=== PATIENT | male | born 1955 | race Caucasian/White ===

== ENCOUNTER 2018-03-20 13:22 | Emergency (ER) | payer OTHER ==
[~2018-03-20] VITALS: Ht 172.7 cm; Wt 63.7 kg
[~2018-03-20 13:22] MED LIST: CLEOCIN HCL300 MG PO; ECO81 PO; LEVAQUIN750 MG PO; LISINOPRIL/HCTZ1 TA2 PO; NIC21 TD
[2018-03-20 15:40] VITALS: BP 113/65
== END 2018-03-20 15:40 | disposition home or self-care (01) ==
LOC: ED 13:22
DX: Z93.0 Tracheostomy status (principal); R06.00 Dyspnea, unspecified; Z85.819 Personal history of malignant neoplasm of unspecified site of lip, oral cavity, and pharynx
CPT/HCPCS: Q0092

== ENCOUNTER 2018-08-21 08:56 | Inpatient (IN) | payer OTHER ==
[~2018-08-21] VITALS: Ht 177.8 cm; Wt 57.8 kg
[2018-08-21 10:26] LABS: BASOPHIL % 0.2 % (0-2); PLATELET COUNT 276 x10^3mcL (130-400)
[2018-08-21 11:01] LABS: ALKALINE PHOSPHATASE 86 U/L (46-116); AST/SGOT 13 U/L (15-37); BILIRUBIN TOTAL 0.22 mg/dL (0.20-1.00); CALCIUM 7.4 mg/dL (8.5-10.1); CARBON DIOXIDE 24.8 mmol/L (21-32); CHLORIDE SERUM 101 mmol/L (98-107); GFR1 > 60 mL/min; GLUCOSE SERUM 154 mg/dL (74-106); MAGNESIUM 1.9 mg/dL (1.8-2.4); POTASSIUM SERUM 3.6 mmol/L (3.5-5.1); SODIUM SERUM 137 mmol/L (136-145)
[2018-08-21 11:06] LABS: ALBUMIN 2.1 g/dL (3.4-5.0); TOTAL PROTEIN, SERUM 5.4 g/dL (6.4-8.2)
[2018-08-21 11:11] LABS: microscopic required? YES; urine erythrocyte TRACE (NEGATIVE)
[2018-08-21 11:22] LABS: ALT/SGPT < 6.0 U/L (16-63)
[2018-08-21 17:16] VITALS: BP 148/60
[2018-08-21] MEDS ORDERED: ATENOLOL100 MG PEG (17:35)
[2018-08-21] MEDS ORDERED: AMLODIPINE BESYL5 M2 GT (17:37)
[2018-08-21] MEDS ORDERED: CYMBALTA20 M1 PEG (17:38)
[2018-08-21] MEDS ORDERED: ZOFRAN8 MG PEG (17:38)
[2018-08-21] MEDS ORDERED: AMBIEN10 MG PEG (17:39)
[2018-08-21] MEDS ORDERED: NOR10T PEG (17:41)
[2018-08-21 18:18] LABS: PLATELET COUNT 234 x10^3mcL (130-400); RED CELL DISTRIBUTION WIDTH 14.1 % (11.5-14.5)
[2018-08-21 18:20] LABS: BASOPHIL % 0 % (0-2)
[2018-08-21 19:30] VITALS: BP 128/84
[2018-08-22] VITALS (8 sets, daily range): BP systolic 100–128; BP diastolic 60–84
[2018-08-22 05:28] LABS: BASOPHIL % 0.3 % (0-2); PLATELET COUNT 226 x10^3mcL (130-400); RED CELL DISTRIBUTION WIDTH 14.3 % (11.5-14.5)
[2018-08-22 05:35] LABS: CARBON DIOXIDE 31.2 mmol/L (21-32); CHLORIDE SERUM 108 mmol/L (98-107); CREATININE SERUM 0.7 mg/dL (0.7-1.3); GFR1 > 60 mL/min; GLUCOSE SERUM 117 mg/dL (74-106); POTASSIUM SERUM 3.5 mmol/L (3.5-5.1); SODIUM SERUM 143 mmol/L (136-145)
[2018-08-22 11:01] LABS: BASOPHIL % 0 % (0-2); PLATELET COUNT 215 x10^3mcL (130-400); RED CELL DISTRIBUTION WIDTH 14.2 % (11.5-14.5)
[2018-08-23] VITALS (7 sets, daily range): BP systolic 101–144; BP diastolic 58–78
[2018-08-23 05:28] LABS: BASOPHIL % 0.3 % (0-2); CARBON DIOXIDE 29.6 mmol/L (21-32); CHLORIDE SERUM 108 mmol/L (98-107); CREATININE SERUM 0.7 mg/dL (0.7-1.3); GFR1 > 60 mL/min; GLUCOSE SERUM 125 mg/dL (74-106); PLATELET COUNT 206 x10^3mcL (130-400); POTASSIUM SERUM 3.3 mmol/L (3.5-5.1); RED CELL DISTRIBUTION WIDTH 14.6 % (11.5-14.5); SODIUM SERUM 137 mmol/L (136-145)
[2018-08-24] VITALS (8 sets, daily range): BP systolic 97–132; BP diastolic 61–80; Ht 177.8 cm; Wt 57.8 kg
[2018-08-24 05:20] LABS: BASOPHIL % 0.1 % (0-2); PLATELET COUNT 201 x10^3mcL (130-400)
[2018-08-24 05:27] LABS: CALCIUM 7.7 mg/dL (8.5-10.1); CARBON DIOXIDE 30.2 mmol/L (21-32); CHLORIDE SERUM 114 mmol/L (98-107); CREATININE SERUM 0.7 mg/dL (0.7-1.3); GFR1 > 60 mL/min; GLUCOSE SERUM 118 mg/dL (74-106); POTASSIUM SERUM 3.8 mmol/L (3.5-5.1); SODIUM SERUM 144 mmol/L (136-145)
[2018-08-24 05:39] LABS: RED CELL DISTRIBUTION WIDTH 14.8 % (11.5-14.5)
[2018-08-24 06:32] LABS: rbc morphology (normal/abnorm) ABNORMAL (NORMAL)
[2018-08-25] VITALS (11 sets, daily range): BP systolic 113–149; BP diastolic 60–95
[2018-08-25 05:51] LABS: BASOPHIL % 0.1 % (0-2); PLATELET COUNT 243 x10^3mcL (130-400)
[2018-08-25 05:54] LABS: RED CELL DISTRIBUTION WIDTH 16.3 % (11.5-14.5)
[2018-08-25 06:12] LABS: CALCIUM 8.2 mg/dL (8.5-10.1); CARBON DIOXIDE 27.3 mmol/L (21-32); CHLORIDE SERUM 111 mmol/L (98-107); CREATININE SERUM 0.8 mg/dL (0.7-1.3); GFR1 > 60 mL/min; GLUCOSE SERUM 112 mg/dL (74-106); POTASSIUM SERUM 3.6 mmol/L (3.5-5.1); SODIUM SERUM 148 mmol/L (136-145)
[2018-08-26 05:32] VITALS: BP 135/79
[2018-08-26 09:59] VITALS: BP 143/72
[2018-08-26 12:10] VITALS: BP 96/67
[2018-08-26 12:15] VITALS: BP 96/67
[2018-08-26 17:05] VITALS: BP 129/75
[2018-08-26 20:32] VITALS: BP 129/75
== END 2018-08-26 20:38 | disposition home or self-care (01) | DRG 720 ==
LOC: ED 08:56 → DU 14:10 → IC 14:10 → DU 08-23 15:22 → IC 08-23 20:40 → DU 08-25 17:41
PROVIDERS: Emergency Medicine; Internal Medicine; Internal Medicine Pulmonary Disease; ADMIT Internal Medicine Pulmonary Disease
PROC: 0W9B30Z Drainage of Left Pleural Cavity with Drainage Device, Percutaneous Approach (ICD-10-PCS; principal; 2018-08-21)
PROC: 30233N1 Transfusion of Nonautologous Red Blood Cells into Peripheral Vein, Percutaneous Approach (ICD-10-PCS; 2018-08-22)
PROC: 3E02340 Introduction of Influenza Vaccine into Muscle, Percutaneous Approach (ICD-10-PCS; 2018-08-22)
PROC: 3E0234Z Introduction of Serum, Toxoid and Vaccine into Muscle, Percutaneous Approach (ICD-10-PCS; 2018-08-22)
PROC: 0D20XYZ Change Other Device in Upper Intestinal Tract, External Approach (ICD-10-PCS; 2018-08-26)
PROC: 0DB68ZX Excision of Stomach, Via Natural or Artificial Opening Endoscopic, Diagnostic (ICD-10-PCS; 2018-08-26 10:30)
DX: A41.9 Sepsis, unspecified organism (principal); J96.10 Chronic respiratory failure, unspecified whether with hypoxia or hypercapnia; E46 Unspecified protein-calorie malnutrition; E87.2 Acidosis; Z93.0 Tracheostomy status; K25.4 Chronic or unspecified gastric ulcer with hemorrhage; J18.9 Pneumonia, unspecified organism; C02.9 Malignant neoplasm of tongue, unspecified; D62 Acute posthemorrhagic anemia; R65.20 Severe sepsis without septic shock; R62.7 Adult failure to thrive; J44.9 Chronic obstructive pulmonary disease, unspecified; J93.9 Pneumothorax, unspecified; E86.0 Dehydration; Z93.1 Gastrostomy status; K59.00 Constipation, unspecified; Z87.891 Personal history of nicotine dependence; Z90.09 Acquired absence of other part of head and neck; Z68.1 Body mass index [BMI] 19.9 or less, adult; Z23 Encounter for immunization
CPT/HCPCS: 32551; 36600; 43235; 43760; 87804; 90658; 90732; A4628; C1729; C9113; J0696; J1170; J1200; J1610; J1940; J2001; J2060; J2250; J2270; J2310; J2405; J3010; J3490; J7030; J7050; J7620; P9016; Q0092

== ENCOUNTER 2018-11-26 14:49 | Emergency (ER) | payer OTHER ==
[~2018-11-26] VITALS: Ht 175.3 cm; Wt 61.2 kg
[~2018-11-26 14:49] MED LIST changes: +AMBIEN10 MG PEG; +AMLODIPINE BESYL5 M2 GT; +ATENOLOL100 MG PEG; +CYMBALTA20 M1 PEG; +NOR10T PEG; +ZOFRAN8 MG PEG
[2018-11-26 15:15] VITALS: BP 106/70; Ht 175.3 cm; Wt 61.2 kg
== END 2018-11-26 17:23 | disposition home or self-care (01) ==
LOC: ED 14:49
DX: Z46.59 Encounter for fitting and adjustment of other gastrointestinal appliance and device (principal); Z85.810 Personal history of malignant neoplasm of tongue; I10 Essential (primary) hypertension
CPT/HCPCS: Q0092; Q9967

== ENCOUNTER 2019-03-07 17:32 | Inpatient (IN) | payer OTHER ==
[~2019-03-07] VITALS: Ht 177.8 cm; Wt 60.0 kg
--- NOTE | 2019-03-07 17:51 | NUR ---
PT BIBA FROM HOME. PER MEDIC PT'S SISTER PT PT HAD FALL TODAY, -LOC. PER MEDIC PT WAS FOUND BETWEEN WALL AND COUCH UPON ARRIVAL. PE MEDIC PT HAD TONGUE REMOVED D/T "MOUTH CANCER." PT ABLE TO ANSWER YES AND NO QUESTIONS WITH HANG GESTURES. GTUBE SEEN TO LUQ WITH BLACK SUBSTANCE IN TUBING. TRACH NOTED, RT AT BEDSIDE FOR SUCTIONING AT THIS TIME; THICK WHITE PHLEGM NOTED. PT CONNECTED TO FULL CM.
[2019-03-07 17:53] LABS: PLATELET COUNT 247 x10^3mcL (130-400)
[2019-03-07 17:55] LABS: RED CELL DISTRIBUTION WIDTH 17.2 % (11.5-14.5)
--- NOTE | 2019-03-07 17:58 | NUR ---
XRAY AT BEDSIDE AT THIS TIME.
--- NOTE | 2019-03-07 17:58 | NUR ---
BLOOD CULTURES COLLECTED AT 1750 USING PROPER TILLER WORKER. PT TOLERATED WELL
[2019-03-07 18:11] LABS: ALKALINE PHOSPHATASE 84 U/L (46-116); ALT/SGPT 15 U/L (16-63); AST/SGOT 22 U/L (15-37); CARBON DIOXIDE 32.7 mmol/L (21-32); CHLORIDE SERUM 93 mmol/L (98-107); GFR1 > 60 mL/min; GLUCOSE SERUM 164 mg/dL (74-106); POTASSIUM SERUM 3.3 mmol/L (3.5-5.1); SODIUM SERUM 137 mmol/L (136-145); TOTAL PROTEIN, SERUM 6.9 g/dL (6.4-8.2)
[2019-03-07 18:14] LABS: ALBUMIN 2.8 g/dL (3.4-5.0)
[2019-03-07 18:16] LABS: MONOCYTE 6 % (0-7); SEGMENTED NEUTROPHILS 83 % (37-75)
[2019-03-07 18:18] LABS: PLATELET MORPHOLOGY PLATELETS NORMAL; rbc morphology (normal/abnorm) ABNORMAL (NORMAL)
--- NOTE | 2019-03-07 18:34 | NUR ---
PROVIDED PT WITH WARM BLANKET AND IS IN HIS POSITION OF COMFORT AT THIS TIME
--- NOTE | 2019-03-07 18:44 | NUR ---
PROVIDED PT WITH URINAL TO PROVIDE SAMPLE
--- NOTE | 2019-03-07 18:57 | NUR ---
PROVIDED PT WITH PILLOW, CALLED RT FOR PT TO BE SUCTIONED
[2019-03-07 19:03] LABS: microscopic required? YES; urine erythrocyte TRACE (NEGATIVE)
--- NOTE | 2019-03-07 19:08 | NUR ---
PT PLACED SELF ON BEDPAN. PT MOTHER AT PT BEDSIDE.
--- NOTE | 2019-03-07 19:26 | NUR ---
PT POSITIONED TO COMFORT, PLACED BACK ON LINEN ROOM CUSTODIAN. MOTHER AT BEDSIDE.
--- NOTE | 2019-03-07 19:35 | NUR ---
PT NOTED WITH SCARRED ABRASIONS TO LEFT ARM AND LINEAR ECCHYMOSIS TO LEFT UPPER SIDE/JUST BELOW ARM PIT. PER PT MOTHER, PT'S FRIENDS DOGS "GET VERY HAPPY TO SEE HIM AND JUMP ON HIM ALL THE TIME AND HE GETS SCRATCHES FROM THE DOGS". PT SMILING AND NODDING HIS HEAD HIS MOTHER EXPLAINED WHERE THE ABRASIONS AND ECCHYMOSIS HAVE COME FROM.
--- NOTE | 2019-03-07 20:23 | NUR ---
REPORT GIVEN TO JASMIN TIDWELL TO ASSUME CARE OF PT.
--- NOTE | 2019-03-07 20:35 | NUR ---
PT TRANSFERRED TO TELE BED 222B ON GURNEY ON PRODUCTION GRIP WITH MYSELF, JASMIN HARRINGTON AND JASMIN RESTREPO AT PT SIDE. PT A&OX4,NO ACUTE DISTRESS NOTED, RESP EVEN ANDU NLABORED, AMBULATED TO TELE BED WITH STEADY GAIT. PT POSITIONED SELF TO POSITION OF COMFORT, REFUSED GOWN. JASMIN TIDWELL AT PT BEDSIDE TO ASSUME CARE OF PT.
--- NOTE | 2019-03-07 20:40 | NUR ---
PATIENT RECEIVED BY ASSIGNED NURSE YAW-JASMIN. PATIENT IS ALERT AND ORIENTED X3, NON VERBAL D/T SURGICAL RESECTION OF TONGUE D/T TONGUE CARCINOMA AND ALSO MOUTH AND NECK RECONSTRUCTIVE SURGERY, COMMUNICATE VIA HAND HELD WHITE BOARD AND ALSO GESTURING. INFORMATION GATHERED FROM MOTHER(NAWAF AVELAR) AND SISTER ( ISAC SLOAN). PER FAMILY PATIENT REASON FOR ADMISSION AND SEEKING MEDICAL INTERVENTION D/T GENERALIZED WEAKNESS, S/P FALL X2 COMING OUT OF THE BATHROOM TODAY AND ALSO WAS FOUND BETWEEN WALL AND COUCH UPON MEDIC ARRIVAL AT HOME. PATIENT WITH TRACHEOSTOMY, SHILEY#6, NECK STRAP SECURED, NOTED SMALL AMT OF YELLOW DISCHARGE FROM SITE. GASTROSTOMY TUBE TO LLQ , NOTED COLOR BLACK ON TUBING, PER FAMILY PATIENT NORMALLY DOES BOLUS FEEDING HIMSELF WITH NUTREN 10 CANS PER DAY Q4HRS, SITE CARE RENDERED. HEPLOCK TO LAC AND RAC INTACT SITE CLEAR. TELE#19 ST W/ OCC PVC'S, IQ=[phone]. NOTED SUPERFICIAL ABRASION TO LEFT LAT CHEST JUST BELOW ARMPIT, ECCHYMOSIS TO LEFT UPPER ARM ABOVE ELBOW-ELSI. NO DISTRESS NOTED. CALL LIGHT PLACED IN REACH.SAFETY AND FALL PREC. INITIATED.WILL ENDORSE CARE TO ASSIGNED NURSE.
--- NOTE | 2019-03-07 20:40 | NUR ---
RECEIVED PT FROM ED, VIA [facility], ABLE TO AMBULATE TO BED, GAIT STRONG AND STEADY, NO ACUTE DISTRESS OBSERVED. ORIENTED PT TO ROOM AND CALL LIGHT.
[2019-03-07 21:31] VITALS: BP 101/69
--- NOTE | 2019-03-07 21:55 | NUR ---
KCL GIEN VIA PEG ORDERED, FLUSHED AND INFUSED WELL. DARK RED DRAINAGE NOTED TO PEG TUBING, ACCORDING TO PT, THIS STARTED 2 DAYS AGO.
--- NOTE | 2019-03-07 22:04 | NUR ---
PER CLINICAL APPLICATION MANAGER, PT'S HR 140'S. PT IN BATHROOM AT THIS TIME, HAVING BM.
[2019-03-07 23:00] VITALS: BP 101/69
--- NOTE | 2019-03-07 23:07 | NUR ---
PT AMBULATED TO BATHROOM, BACK TO BED WITHOUT INCIDENT. DARK TARRY, DARK RED STOOL NOTED, ACCORDING TO PT, STARTED 1 DAY AGO. C/O ABD PAIN, MEDICATED WITH PRN TYLENOL PER EMAR
--- NOTE | 2019-03-08 02:55 | NUR ---
PER CHIEF UNIT FORESTER, PT'S HR UP TO 135-140S. PT IN BATHROOM AT THIS TIME
--- NOTE | 2019-03-08 05:11 | NUR ---
NO SIGNIFICANT CHANGES TO REPORT, PT COMPLIED WITH NURSING CARE THROUGHOUT THE SHIFT WITH NO ACUTE EVENTS OVERNIGHT. NO ACUTE DISTRESS OBSERVED AT THIS TIME, PT LAYING IN BED, BREATHING EVEN AND UNLABORED. COMFORT AND SAFETY MEASURES MAINTAINED. ALL NEEDS ASSESSED AND ATTENDED TO. CALL LIGHT WITHIN REACH. WILL CONTINUE TO MONITOR AND ENDORSE CARE TO DAY SHIFT NURSE
[2019-03-08 05:45] VITALS: BP 108/76
[2019-03-08 06:38] LABS: CALCIUM 8.3 mg/dL (8.5-10.1); CARBON DIOXIDE 31.9 mmol/L (21-32); CHLORIDE SERUM 104 mmol/L (98-107); CREATININE SERUM 0.8 mg/dL (0.7-1.3); GFR1 > 60 mL/min; GLUCOSE SERUM 133 mg/dL (74-106); MAGNESIUM 1.9 mg/dL (1.8-2.4); PHOSPHOROUS 2.3 mg/dL (2.5-4.9); SODIUM SERUM 146 mmol/L (136-145)
[2019-03-08 06:42] LABS: POTASSIUM SERUM 2.8 mmol/L (3.5-5.1)
--- NOTE | 2019-03-08 06:44 | NUR ---
RECEIVED CRITICAL VALUE FOR K 2.8 DR. CLARK PAGED, WILL ANTICIPATE CALL BACK
--- NOTE | 2019-03-08 07:17 | NUR ---
SPOKE WITH DR. MILLER, UPDATED ON PT'S STATUS. ORDERS FOR EGD TODAY AND NPO
--- NOTE | 2019-03-08 08:00 | NUR ---
ALERT AND ORIENTED. CONGESTED BREATHING. DOES HIS OWN FREQUENT SUCTIONING. GT FEEDINGS ON HOLD FOR GI CONSULT. DARK FLUID NOTED IN GT. INTERMITTENT ABD PAIN. INDEPENDENT W ADL'S. BRP. CALL LIGHT WITHIN REACH.
[2019-03-08 08:15] VITALS: BP 109/75; BP 126/84
[2019-03-08 09:24] LABS: PLATELET COUNT 208 x10^3mcL (130-400)
[2019-03-08 09:29] LABS: BASOPHIL % 0 % (0-2); RED CELL DISTRIBUTION WIDTH 16.8 % (11.5-14.5)
--- NOTE | 2019-03-08 10:08 | NUR ---
CHANGED LINENS AND PANTS. PT HAS SIGNED CONSENT FOR EGD FOR TODAY.
--- NOTE | 2019-03-08 11:17 | NUR ---
LEFT VIA BED FOR EGD POSS PEG TUBE REPLCEMENT. TELE MONITOR INFORMED.
--- NOTE | 2019-03-08 12:14 | NUR ---
BACK FROM EGD. LARGE GASTRIC ULCER AND CLOT. NO TREATMENT YET. CT ANGIO OF ABD ORDERED.
--- NOTE | 2019-03-08 15:58 | NUR ---
PTS MOTHER, BARBER AVELAR, TOOK PTS RING HOME.
--- NOTE | 2019-03-08 16:31 | NUR ---
BACK FROM CT ANGIO ABD WITH CONTRAST VIA GT.
[2019-03-08 16:40] VITALS: BP 100/65
--- NOTE | 2019-03-08 19:30 | NUR ---
RECEIVED PT LAYING IN BED, NO ACUTE DISTRESS OBSERVED. S/P EGD EARLIER TODAY, REMAINS NPO ORDERED. ABD ROUND AND SOFT, DENIES N/V, L SIDED PEG TUBE IN PLACE WITH DARK SCANT SEDIMENT NOTED THROUGH TUBING, MULTIPLE BLACK STOOLS EARLIER TODAY. SHILEY #[address] WITH MILD YELLOW DISCHARGE NOTED. PT BREATHING ON RA, EVEN AND UNLABORED, LUNGS DIM, O2 SAT 98% SUCTION AT BEDSIDE, PT ABLE TO SUCTION SELF PRN. PT IS AWAKE AND ALERT, AROUSABLE TO VERBAL STIMULI, NONVERBAL, ABLE TO COMMUNICATE BY GESTURING OR ANSWERING YES OR NO QUESTIONS. PT ALSO UTILIZES WHITE BOARD FROM HOME TO MAKE NEEDS KNOWN. SINUS TACH TO TELE #19, HR 108, NO CP. PULSES PRESENT AND EQUAL THROUGHOUT, NO EDEMA. MILD GENERALIZED WEAKNESS, AMBULATORY AND ABLE TO REPOSITION SELF IN BED, S/P FALL AT HOME PRIOR TO ADMIT, FALL PRECAUTIONS IN PLACE. FREELY VOIDS URINE WITH BRP, URINAL ALSO AT BEDSIDE AND WITHIN REACH. COMFORT AND SAFETY MEASURES IN PLACE. ALL NEEDS ASSESSED AND ATTENDED TO. CALL LIGHT WITHIN REACH. WILL CONTINUE TO MONITOR
--- NOTE | 2019-03-08 19:37 | NUR ---
RESTING QUIETLY. RECEIVED MORPHINE 4 MG IV FOR BURNING PAIN TO ABD. CT ANGIO ABD COMPLETED TODAY. BRP WITH LITTLE ASSIST. CANT TALK USES DRY ERASE BOARD AND HAND GESTURES FOR COMMUNICTING. VSS. CALL LIGHT WITHIN REACH. EGD TODAY LARGE GASTRIC ULCER AND BLOOD CLOT. NO TRETMENT AT THAT TIME. DR. MILLER WANTED TO SEE RESULTS OF CT ANGIO BEFORE MAKING ANY FURTHER DECISIONS.
--- NOTE | 2019-03-08 20:32 | NUR ---
SPOKE WITH DR. MILLER AND GAVE RESULTS OF CT ABD WITH PO CONTRAST. NEW ORDERS TO START 100 ML BOLUS FEEDING OF NUTREN Q4H, PROTONIX VIA PEG BID.
[2019-03-08 20:36] VITALS: BP 124/80
--- NOTE | 2019-03-08 21:02 | NUR ---
NUTREN 2.0 RAMSAY FORMULA EQUIVALENT TWO CAN HN.
--- NOTE | 2019-03-08 22:10 | NUR ---
IV TO LAC FOUND LEAKING WHEN FLUSHED WITH NS, REMOVED WITH CATH INTACT. NEW IV STARTED TO RFA, #22 G AND CONNECTED TO PROTONIX DRIP ORDERED, INFUSING WELL. NO ACUTE DISTRESS OBSERVED, CALL LIGHT WITHIN REACH. WILL CONTINUE TO MONITOR
[2019-03-09] VITALS (7 sets, daily range): BP systolic 99–124; BP diastolic 59–79
--- NOTE | 2019-03-09 00:09 | NUR ---
100 ML BOLUS TUBE FEEDING OF TWO LINA HN INFUSED VIA PT'S PEG TUBE, INFUSED WELL AND EASILY, FLUSHED WITH 40 ML WATER. HOB ELEVATED. MADE PT AWARE TO CALL IF FEELING N/V, NODDED YES. CALL LIGHT WITHIN REACH. WILL CONTINUE TO MONITOR
--- NOTE | 2019-03-09 02:33 | NUR ---
PER TELE, PT'S HR 165. PT ASSESSED, BRIGHT RED BLOOD NOTED TO PEG TUBING, BLOOD OOZING FROM PEG INCISION SITE AND TRACH. B/P 121/79 MAP 89; O2 SAT 95% ON RA; 98.3 TEMP; HR 131; RR 24. ACUTE DISTRESS OBSERVED, PT C/O 04/21 ABD PAIN, ABD ROUND AND SOFT, TENDER. DR. MILLER MADE AWARE, ORDERS TO TRANSFER TO ICU; STAT CBC; STAT TYPE & CROSS; 2 UNITS PRBC ON STANDBY; D/C BOLUS TF; SURGERY CONSULT. ORDERS INPUTTED. DR. RAMIREZ PAGED TO MAKE ATTENDING AWARE. WILL ANTICIPATE CALL BACK
--- NOTE | 2019-03-09 02:45 | NUR ---
REPORT GIVEN TO MAGUE CASTELLANOS IN ICU TO ASSUME CARE OF PT. ALL QUESTIONS AND CONCERNS ADDRESSED
--- NOTE | 2019-03-09 02:48 | NUR ---
RECEIVED PT FROM TELE FLOOR. PT TRANSFERRED ONTO BED 6 WITH NO COMPLICATIONS. PT CONNECTED TO FULL TRANSPORTATION SOLUTIONS MANAGER, VITALS READING: HR 134, BP 102/57 MAP 77, RR 20, SPO2 97%, TEMP 97.6. PT IS AWAKE/ALERT. NONVERBAL. PT ABLE TO NODD HEAD IN RESPONSE TO YES AND NO QUESTIONS. PUPILS WITH BRISK REACTION TO LIGHT, 4 MM BILAT. DENIES CALIX. NO FACIAL DROOP NOTED. PT ABLE TO FOLLOW SIMPLE COMMANDS. SHILEY # [address] WITH BLOOD-TINGED SECRETIONS NOTED. ORAL MUCOSA PINK AND MOIST. TRACHEA MIDLINE. NO JVD NOTED. RECEIVED PT ON RA STATTING 89%. PT PLACED ON 2 LPM VIA NC NOW STATTING 97%. LUNGS SOUND DIMINISHED BILAT. SYMMETRICAL CHEST EXPANSION NOTED. S1/S2 HEART SOUNDS AUSCULTATED. CHEST WALL EQUAL AND SYMMETRICAL. DENIES ANY CP. PALPABLE PULSES X4 EXTREMITIES. SKIN IS WARM AND DRY. NO EDEMA NOTED. CAP REFILL < 3 SECS. RW AND RFA IV'S IN PLACE WITH NO S/S OF INFILTRATION NOTED. PROTONIX GTT INFUSING @ 10 ML/HR AND VANCO ABX INFUSING @ 166 ML/HR. GENERALIZED WEAKNESS. NO JOINT SWELLING/DEFORMITY NOTED. PT IS NPO AT THIS TIME. NO N/V NOTED. ABD IS SOFT/FLAT. PT C/O ABD PAIN, WILL MEDICATE PER EMAR. BOWEL SOUNDS ACTIVE X4 QUADRANTS. NO BM NOTED. L SIDED PEG TUBE IN PLACE WITH DARK BLOODY DRAINAGE NOTED TO PEG TUBING. PT VOIDS FREELY VIA URINAL. NO SCROTAL EDEMA NOTED. ABRASION NOTED TO LEFT ARM, LEFT CHEST, AND LEFT ARMPIT. SCATTERED ECCHYMOSIS NOTED TO LUE. PT ASSISTED TO REPOSITION Q2H AND PRN FOR COMFORT. PT IS CALM AND COOPERATIVE. BED IN LOW POSITION. CALL LIGHT IN REACH. WILL CONT TO MONITOR
--- NOTE | 2019-03-09 03:00 | NUR ---
AERONAUTICAL ENGINEERING OFFICER AT BEDSIDE FOR CBC LAB DRAW
--- NOTE | 2019-03-09 03:13 | NUR ---
PT C/O ABD PAIN RATED 10/10. PT MEDICATED WITH MORPHINE PER EMAR
[2019-03-09 03:29] LABS: BASOPHIL % 0 % (0-2); PLATELET COUNT 200 x10^3mcL (130-400); RED CELL DISTRIBUTION WIDTH 16.5 % (11.5-14.5)
--- NOTE | 2019-03-09 04:35 | NUR ---
PT REPORTING NAUSEA AT THIS TIME. ADMINISTERING ZOFRAN PER EMAR.
--- NOTE | 2019-03-09 04:50 | NUR ---
SPOKE TO DR. SARABIA VIA TELEPHONE. UPDATED ON PT'S STATUS. MADE AWARE OF PT'S CURRENT SEVERE ABD PAIN. PER DR. SARABIA, ORDER DILAUDID 1 MG IVP Q3H PRN SEVERE PAIN. MADE AWARE PT IS HAVING DIFFICULTY URINATING. PER DR. SARABIA, OK TO INSERT WAYNE. PT TO BE MADE FULL CODE. ORDERS READ BACK AND IN AGREEMENT. WILL CARRY OUT ORDERS.
--- NOTE | 2019-03-09 04:58 | NUR ---
16 FR WAYNE CATH PLACED AT THIS TIME VIA STERILE TECHNIQUE.
--- NOTE | 2019-03-09 06:15 | NUR ---
PT HAD A MODERATE AMOUNT OF LOOSE BLACK TARRY COLORED STOOL. FULL BED BATH PROVIDED. PERICARE PROVIDED.
--- NOTE | 2019-03-09 06:17 | NUR ---
SPOKE TO DR. SARABIA VIA TELEPHONE. MADE AWARE OF PT'S CURRENT HGB OF 7.7. AWARE PT HAD A MOD SIZE LOOSE BLACK TARRY BM, BLOOD NOTED TO PEG TUBING, AND PT HAVING BLOOD TINGED SECRETIONS FROM THE TRACH. PER DR. SARABIA, INFUSE 2 UNTIS OF PRBC'S. ORDER READ BACK AND IN AGREEMENT. WILL CARRY OUT ORDER.
[2019-03-09 07:03] LABS: CALCIUM 8.1 mg/dL (8.5-10.1); CARBON DIOXIDE 32.7 mmol/L (21-32); CHLORIDE SERUM 114 mmol/L (98-107); GFR1 > 60 mL/min; GLUCOSE SERUM 160 mg/dL (74-106); POTASSIUM SERUM 3.5 mmol/L (3.5-5.1); SODIUM SERUM 153 mmol/L (136-145)
--- NOTE | 2019-03-09 07:08 | NUR ---
DR. CEE AT BEDSIDE ASSESSING THE PT. UPDATED ON PT'S STATUS. ALL QUESTIONS/CONCERNS ADDRESSED AT THIS TIME
--- NOTE | 2019-03-09 07:12 | NUR ---
REPORT GIVEN TO ROSY CASTELLANOS FOR CONTINUITY OF CARE. ALL QUESTIONS/CONCERNS ADDRESSED AT THIS TIME. ENDORSING ALL CARE
--- NOTE | 2019-03-09 07:35 | NUR ---
THE PATIENT AWAKE, BUT NON-VERBAL DUE TO TRACH. PATIENT ORIENTED TO PERSON, PLACE AND TIME; PATIENT COMMUNICATES VIA GESTURING AND WRITING. PATIENT DENIES SHORTNESS OF BREATH, NAUSEA/VOMITING AT THIS TIME. PATIENT STATES THAT PAIN IN ABDOMEN IS TOLERABLE AT THIS TIME. WILL MEDICATE FOR PAIN PRN. TRACH SIZE [address] TELE # 6 READS SINUS TACHYCARDIA. PEG TUBE AT ABDOMEN TO GRAVITY DRAINING SCANT AMOUNT OF DARK RED DRAINAGE IN THE TUBE. WAYNE CATH TO GRAVITY DRAINING YELLOW URINE. IV SITES TO RFA AND RIGHT WRIST; IVF NS AT 100ML/HR AND PROTONIX DRIP AT 10ML/HR. CALL LIGHT WITHIN REACH. SIDE RAILS UP X3. BED IS AT LOWEST POSITION.
--- NOTE | 2019-03-09 08:57 | NUR ---
DR. CORDERO IS AT BEDSIDE SEEING THE PATIENT. UPDATE PROVIDED TO THE DOCTOR.
--- NOTE | 2019-03-09 09:20 | NUR ---
NEW IV SITE INSERTED TO LFA WITH #20G FOR BLOOD TRANSFUSION.
--- NOTE | 2019-03-09 10:39 | NUR ---
HAD MODERATE SIZED BLACK LIQUIDY STOOL. CLEANED AND LINENS CHANGED. NAD.
--- NOTE | 2019-03-09 12:10 | NUR ---
AT 0935; THE FIRST UNIT OF PRBC INITIATED. VS: TEMP 97.9, HR 124, BP 115/70, RR 22, O2 SAT 97%. INSTRUCTED THE PATIENT TO NOTIFY THE NURSE FOR ANY ADVERSE REACTION. AT 0950: RECHECKING VS AFTER 15 MINUTES OF THE BLOOD TRANSFUSION STARTED. TEMP 99.2, HR 129, BP 106/73, RR 22, AND O2 SAT 99. AT 1210: THE FIRST UNIT OF PRBC COMPLETED; VS: TEMP 98.4, HR 110, BP 124/77, RR 17, O2 SAT 100%. PATIENT DENIES ANY ADVERSE REACTION. WILL TRANSFUSE THE 2ND UNIT OF PRBC AFTER ABX GIVEN TO THE PATIENT.
--- NOTE | 2019-03-09 12:51 | NUR ---
DR. CLARK IS AT BEDSIDE EXAMING THE PATIENT; UPDATE PROVIDED TO THE DOCTOR.
--- NOTE | 2019-03-09 14:45 | NUR ---
AT 1430; THE SECOND UNIT OF PRBC INITATED WITH TEMP 99.2, HR 109, BP 112/76 AND O2 SAT 100%. AGAIN, INSTRUCTED THE PATIENT TO NOTIFY THE NURSE FOR ANY ADVERSE REACTION. AT 1445: RECHECKING THE PATIENT AND VS: TEMP 98.6, HR 108, BP 114/66, RR 18, AND O2 SAT 100%. PATIENT DENIES ANY ADVERSE REACTION SO FAR. CONTINUE TO TRANSFUSE THE BLOOD.
--- NOTE | 2019-03-09 15:15 | NUR ---
Initial Nutrition Assessment: (IC06-A) FRANCISCO AVELAR 63M Dx: Renal failure, dehydration PMHx: HTN, tongue removed (03/03) r/t tongue CA, TF/trach PSHx: CA surgery (tongue CA) Labs: Na 153 H, BG 160 H, BUN 45 H, Alb 2.8 L, Phos 2.3 L, ALT 15 L, RBC 2.44 L, Hgb 7.7 L, HCT 23 L Meds: Protonix, Vancomycin, Zofran Diet: NPO PO intake since admission: NPO Ht: 70 in Wt: 134# BMI: 19.3 Bed scale: 60.9kg IBW: 166# %IBW: 81% UBW: 138# Age: 63 Food Allergies: NKFA Skin: Ecchymosis & abrasion LUE & L chest Jalen: 17 Edema: None noted GI: Abd round, BS hypoactive, PEG tube in place to gravity w/ scant amt dark red drainage in tube Last BM: 03/08 Note (03/09): Nursing trigger received for potential risk Dx, TF. Consult received for TF recommendation. Visited pt bedside, communicates via white board r/t tongue removed r/t tongue CA. Pt states appetite is good, but has been NPO since admission. Pt also expresses "a few" lbs wt loss x 1 wk, and is requesting to have some cold water. Spoke w/ MASONRY SUPERVISOR, states pt has been NPO since being downgraded from upstairs. Noted pt Hx TF. Spoke w/ MASONRY SUPERVISOR regarding recommendation of TF order when appropriate to start, confirmed. Problem with: N/V/D/C: None Problems with: Chewing: Yes Swallowing: Yes Current appetite: good Recent wt change: -4# x 2 days %wt change: -2.9% Vitamin/Supplement use: No Special diet at home: Regular Physical activity: N/A Nutrition education given (specify specific nutrition education and handout given): None given at this time. Food-drug interactions? Education given? None given at this time. Estimated Nutritional Needs Based on ideal body weight (75.5 kg) Energy: 7222-0078 kcal/day (30-35 kcal/kg for CA, wt gain, 81% IBW) Protein: 60-76 g/day (0.8-1.0 g/kg for CA, renal failure) Fluid: 5083-5141 mL/day (1 mL/kcal for dehydration) or per MD Nutrition Diagnosis: Altered nutrient-related lab values r/t renal failure, dehydration AEB Na 153, BUN 45, Phos 2.3. Intervention 1. When medically appropriate, recommend start TF order of TwoCal HN to goal rate 40mL/hr (1920kcal, 80g Pro, 672mL H20) 2. FWF 175mL Q3hrs (1400mL) Monitor/Evaluate Goal: PO intake at least 75% of estimated needs Monitor: PO intake, Labs, GI function F/U in 2-3 days as high risk 03/11-03/12
--- NOTE | 2019-03-09 15:16 | NUR ---
Recommendations: 1. When medically appropriate, recommend start TF order of TwoCal HN to goal rate 40mL/hr (1920kcal, 80g Pro, 672mL H20) 2. FWF 175mL Q3hrs (1400mL)
--- NOTE | 2019-03-09 15:52 | NUR ---
C/O 05/21 SHARP ABD PAIN. MEDICATED PRN, SEE MAR.
--- NOTE | 2019-03-09 17:30 | NUR ---
THE 2ND UNIT OF PRBC COMPLETED; VS: TEMP 98.9, HR 100, BP 110/66, RR 20, AND O2 SAT 100%. PATIENT DENIES ANY ADVERSE REACTION.
--- NOTE | 2019-03-09 17:49 | NUR ---
PER FNS RECCOMENDATION, 2CAL HN W/ GOAL 40 CC/HR, 175 CC FWF Q3H ONCE NO LONGER NPO.
--- NOTE | 2019-03-09 18:21 | NUR ---
WAYNE CARE PROVIDED TO THE PATIENT.
--- NOTE | 2019-03-09 19:04 | NUR ---
REPORT GIVEN TO CHANDANA CORCORAN RN. CONCERNS ADDRESSED.
--- NOTE | 2019-03-09 19:05 | NUR ---
RECEIVED REPORT FROM JULIO CASTELLANOS. WILL RESUME CARE.
--- NOTE | 2019-03-09 19:15 | NUR ---
RECEIVED PT AAOX4. PT HAS TRACH, SHILEY 6 INTACT AND SECURED. ON RA, O2SAT 100%. BREATHING E/U. LUNG SOUNDS DIMINISHED BILATERALLY. S1S2 AUSCULTATED WITH NO MUMURMS NOTED. PT STATES NO CHEST PAIN AT THIS TIME. PT ON PROTONIX GTT AT 10CC/HR AND D5 0.45% NS AT 75CC/HR. PULSES PALPABLE. NO EDEMA NOTED. PEG TUBE IN PLACE DRAINING MINIMAL SANGUINOUS FLUID. PT C/O 7/10 ABDOMINAL PAIN, MEDICATED PRN, SEE EMAR. BS HYPOACTIVE X 4. NPO AT THIS TIME. NO N/V NOTED. WAYNE CATHETER IN PLACE DRAINING VIA GRAVITY YELLOW URINE. NO BM AT THIS TIME. BED IN LOW POSITION. CALL LIGHT WITHIN REACH. WILL CONTINUE TO MONITOR.
--- NOTE | 2019-03-09 19:21 | NUR ---
PT C/O 02/18 ABDOMINAL PAIN. GIVEN DILAUDID 1MG IVP. WILL REASSESS FOR RELIEF OF PAIN.
--- NOTE | 2019-03-09 19:23 | NUR ---
MOLECULAR BIOLOGY DIRECTOR AT BEDSIDE FOR BLOOD DRAW.
[2019-03-09 19:48] LABS: PLATELET COUNT 157 x10^3mcL (130-400); RED CELL DISTRIBUTION WIDTH 18.3 % (11.5-14.5)
[2019-03-09 20:07] LABS: BAND NEUTROPHIL 3 % (0-10); BASOPHIL 0 % (0-2); MONOCYTE 6 % (0-7); SEGMENTED NEUTROPHILS 84 % (37-75); rbc morphology (normal/abnorm) ABNORMAL (NORMAL)
[2019-03-09 20:09] LABS: PLATELET MORPHOLOGY PLATELETS NORMAL; tear drop cell (dacryocyte) 1+
[2019-03-10 03:09] VITALS: BP 114/67
--- NOTE | 2019-03-10 04:45 | NUR ---
PT CLEANED AND ALL LINENS CHANGED. WAYNE CATHETER CARE PROVIDED. URINE OUTPUT DURING SHIFT, 950CC OF YELLOW URINE. OUTPUT FROM PEG TUBE, 80CC OF DARK BROWNISH RED OUTPUT. PT MEDICATED FOR ABDOMINAL PAIN WITH DILAUDID 1MG IVP X 2 AND MORPHINE SULFATE 4MG IVP X 2, WITH RELIEF OF PAIN. ALL NEEDS MET AND ANTICIPATED THROUGHOUT SHIFT.
--- NOTE | 2019-03-10 04:55 | NUR ---
SUPERVISOR TRAVEL TRAILER AT BEDSIDE FOR BLOOD DRAW.
[2019-03-10 05:55] LABS: ALKALINE PHOSPHATASE 62 U/L (46-116); ALT/SGPT 12 U/L (16-63); AST/SGOT 7 U/L (15-37); BILIRUBIN DIRECT 0.11 mg/dL (0.0-0.2); BILIRUBIN TOTAL 0.34 mg/dL (0.20-1.00); CALCIUM 8.2 mg/dL (8.5-10.1); CARBON DIOXIDE 29.6 mmol/L (21-32); CHLORIDE SERUM 118 mmol/L (98-107); CREATININE SERUM 0.8 mg/dL (0.7-1.3); GFR1 > 60 mL/min; GLUCOSE SERUM 105 mg/dL (74-106); SODIUM SERUM 155 mmol/L (136-145)
[2019-03-10 05:56] LABS: ALBUMIN 2.4 g/dL (3.4-5.0); TOTAL PROTEIN, SERUM 5.5 g/dL (6.4-8.2)
[2019-03-10 06:10] LABS: BASOPHIL % 0.1 % (0-2); PLATELET COUNT 179 x10^3mcL (130-400)
[2019-03-10 06:12] LABS: RED CELL DISTRIBUTION WIDTH 18.1 % (11.5-14.5)
--- NOTE | 2019-03-10 06:25 | NUR ---
SPOKE WITH DR. AVALOS, WHO IS THE METABOLIC SPECIALIST MD FOR DR. CEE REGARDING LAB VALUES NA 155, K+ 3.0, HGB 7.9. NEW TELEPHONE ORDER, POTASSIUM CHLORIDE 40MEQ PO Q4HRS X 2. ORDER READ BACK AND CARRIED OUT.
--- NOTE | 2019-03-10 07:04 | NUR ---
SPOKE TO EXCHANGE REQUESTING MD CALL BACK REGARDING ROUTE OF POTASSIUM CHLORIDE ORDER.
--- NOTE | 2019-03-10 07:10 | NUR ---
GAVE REPORT TO ASH CASTELLANOS. ALL QUESTIONS AND CONCERNS ADDRESSED.
--- NOTE | 2019-03-10 07:54 | NUR ---
DR PORTILLO PRESENT AT BEDSIDE DISCUSSING POC WITH PT AT THIS TIME
[2019-03-10 08:00] VITALS: BP 108/62
--- NOTE | 2019-03-10 08:00 | NUR ---
PT RESTING IN BED WITH NO APAPRENT SIGNS OF DISTRESS. A/A/O/X4, NONVERBAL. PT DENIES ACLIX/DIZZINESS. NSR ON MONITOR. PT DENIES CP. RESPIRAITONS E/U. LUNGS DIM IN BASES. ON RA, DENIES SOB. NO RESP DISTRESS NOTED. PT CHRISTIANO CHEN 6. PALP PULSES NOTED TO ALL EXTREMITIES. CAP REFIL <3. SKIN WARM TO TOUCH. ABRASION/ECCYMOSIS NOTED TO CHEST/LUE, SOCIAL ORGANIZATION PROFESSOR. ABDOMEN TENDER TO TOUCH. HYPOACTIVE BS. DENIES N/V. PEG IN PLACE, DRAINING TO GRAVITY MIN DARK DRAINAGE NOTED. F/C WITH YELLOW URINE DRAINING TO GRAVITY. NO SCROTAL EDEMA/PENILE DISCHARGE NOTED. GENERALIZED WEAKNESS. PT ABLE TO REPOSITION SELF. WILL ASSIST NEEDED. BED IN LOWEST POSITION. CALL LIGHT IN REACH. WILL CONT TO MONITOR
--- NOTE | 2019-03-10 08:09 | NUR ---
PT C/O OF ABD PAIN AT THIS TIME, MEDICATED PER EMAR
--- NOTE | 2019-03-10 08:32 | NUR ---
DR CORDERO AT BEDSIDE DISCUSSING POC WITH PT AT THIS TIME
[2019-03-10 10:38] VITALS: BP 117/52
[2019-03-10 12:00] VITALS: BP 129/63
--- NOTE | 2019-03-10 13:00 | NUR ---
PT REQUESTING TO SUCTION SELF AT THIS TIME. MIN CLEAR DRAINAGE NOTED. O2 SAT 98% AT THIS TIME. PT DENIES SOB
--- NOTE | 2019-03-10 17:24 | NUR ---
REPORT CALLED AND GIVEN TO ROD CASTELLANOS. ALL QUESTIONS AND CONCERNS ADDRESSED AT THIS TIME. PT TO BE TRANSFERRED TO ROOM 258. WILL CONT TO MONITOR
--- NOTE | 2019-03-10 17:39 | NUR ---
TELEPHONED PATIENT'S MOTHER NAWAF AND INFORMED HER PATIENT TO BE TRANSFERRED TO ROOM 258A. ALL QUESTIONS AND CONCERNS ADDRESSED.
--- NOTE | 2019-03-10 17:51 | NUR ---
PT C/O OF ABDOMINAL PAIN AT THIS TIME, MEDICATED PER EMAR. VITALS STABLE. WILL TRANSFER AT THIS TIME
--- NOTE | 2019-03-10 18:54 | NUR ---
RECEIVED PT FROM ICU, PT IS ALERT BUT NONVERBAL, PT IS ABLE TO COMMUNICATE WITH NURSE WITH WRITTING BOARD, LUNG SOUND CONGESTED OBDULIO, THE HAS TACH, PT IS ROOM AIR, PO2 97%, SUCTION WAS DONE BY PT REQUESTED. PT IS ON TELE 13, NSR, DENY ANY CHEST PAIN OR DISCOMFORT, BOWEL SOUND PRESENT ALL 4 QUARATNS, NO DISTENTION, NO TENDER. PEDAL PULSE PRESENT BOTH FEET, NO EDEMA, IV AT RIGHT FA, AND LEFT FA, NO LEAKING, NO INFILTRAITON. PEG TUBE IS ON GRAVITY DRAINAGE. DARK BROWN DRAINAGE NOTED. WAYNE CATH IN PLACE, ALL ADLS ASSIST, ALL NEED MET, CALL LIGHT IN REACH, WILL CONTINUE TO MONITOR.
[2019-03-10 18:58] VITALS: BP 129/69
--- NOTE | 2019-03-10 20:18 | NUR ---
PATIENT COMPLAINED OF ABDOMINAL PAIN, PS 8/10. MEDICATED WITH DILAUDID 1 MG IVP OREDERED. WILL CONTINUE TO MONITOR.
[2019-03-10 21:44] VITALS: BP 133/75
--- NOTE | 2019-03-10 22:21 | NUR ---
PATIENT COMPLAINED OF ABDOMINAL PAIN/HEADACHE, PS 9/10. MEDICATED WITH MORPHINE SULFATE 4 MG IVP ORDERED. WILL CONTINUE TO MONITOR.
--- NOTE | 2019-03-11 01:37 | NUR ---
PATIENT COMPLAINED OF ABDOMINAL PAIN, PS 8/10. MEDICATED WITH DILAUDID 1 MG IVP ORDERED. WILL CONTINUE TO MONITOR.
--- NOTE | 2019-03-11 04:46 | NUR ---
PATIENT COMPLAINED OF ABDOMINAL PAIN, PS 8/10. MEDICATED WITH DILAUDID 1 MG IVP ORDERED. WILL CONTINUE TO MONITOR.
--- NOTE | 2019-03-11 05:35 | NUR ---
PATIENT REQUESTED TO BE SUCTIONED. SUCTIONED TWO TIMES AND RECEIVED PIPER/BLOODY THICK SECRETIONS. PATIENT HAS A STRONG AND EFFECTIVE COUGH. COMPLETED TRACH CARE OF CLEANING STOMA AREA AND SECRETIONS THAT COME UP WHEN PATIENT COUGHS. TRACH DOES NOT HAVE AN INNER CANNULA OR DRESSING. PATIENT DID NOT WANT TRACH TIES CHANGED.
--- NOTE | 2019-03-11 06:15 | NUR ---
PATIENT AWAKE IN BED, RESPIRATION EVEN AND UNLABORED, TRACHEOSTOMY TO ROOM AIR. SUCTIONED NEEDED. TRACHEOSTOMY CARE DONE BY RESPIRATORY THERAPIST. IV SITE NO SIGN OF INFILTRATION. PEG TUBE IN PLACED TO DRAINAGE BAG TO GRAVITY DRAINING BROWNISH DRAINAGE. WAYNE CATHETER TO GRAVITY DRAINING YELLOW COLORED URINE. PATIENT STILL COMPLAINING OF ON/OFF ABDOMINAL PAIN. MEDICATED ORDERED. WANTS TO EAT. ASSISTED WITH NEEDS. SAFETY OBSERVED. PLACED BED IN THE LOWEST POSITION. PLACED CALL LIGHT WITHIN REACH AT ALL TIMES.
[2019-03-11 06:17] VITALS: BP 105/58
[2019-03-11 06:58] LABS: CALCIUM 8.4 mg/dL (8.5-10.1); CARBON DIOXIDE 27.1 mmol/L (21-32); CHLORIDE SERUM 115 mmol/L (98-107); CREATININE SERUM 0.9 mg/dL (0.7-1.3); GFR1 > 60 mL/min; GLUCOSE SERUM 95 mg/dL (74-106); POTASSIUM SERUM 3.6 mmol/L (3.5-5.1); SODIUM SERUM 153 mmol/L (136-145)
[2019-03-11 07:08] LABS: BASOPHIL % 0.2 % (0-2); PLATELET COUNT 197 x10^3mcL (130-400)
[2019-03-11 07:10] VITALS: BP 126/74
[2019-03-11 07:39] LABS: RED CELL DISTRIBUTION WIDTH 18.1 % (11.5-14.5)
--- NOTE | 2019-03-11 07:47 | NUR ---
RECIEVEDD PATIENT FROM JASMIN MCKINNEY. PATIENT IN BED, WITH MILD COMPLAINTS OF CALIX AND ABDOMINAL PAIN. DR CEE IN TO SPEAK WITH PATIENT ABOUT PLPAN OF CARE ANDD ABOUT NPO STATUS, STATES PATIENT NEEDS TO BE CLEARED BY GI CONSULT FIRST. PATIENT NODS IN AGREEMENT. DR CEE ALSO STATES PERHAPS ONE MORE DAY. WILL ADMINISTER PRN PAIN MEDICATIONS TODAY, CALL LIGHT IN REACH.
--- NOTE | 2019-03-11 10:44 | NUR ---
PATIENT WITH PT MARY FOR EVAL. PATIENT SEEN AMBULATING DOWN LOCKE WITH PT UNASSISTED. NO FURTHER COMPLAINTS AT THIS TIME. CALLED PATIENT FAMILY ABOUT PATIENT BELONGINGS HE IS LOOKING FOR HIS CELL PHONE, WHICH HIS MOTHER STATES THAT HIS SISTER MIGHT HAVE.
[2019-03-11 12:18] VITALS: BP 124/55
--- NOTE | 2019-03-11 15:10 | NUR ---
PATIENT IN BED SLEEPING AT THIS TIME. NO COMPLAINTS OR SIGNS OF DISTRESS. WILL CONTINUE TO MONITOR FOR EXCESS BLEEDING AND WAITING FOR DR GARCIA TO SPEAK WITH PATIENT. CALL LIGHT IN REACH AT THIS TIME.
[2019-03-11 16:19] VITALS: BP 106/54
--- NOTE | 2019-03-11 19:27 | NUR ---
REPORTED OFF TO JASMIN MONTERO. PATIENT IN BED AT THIS TIME. HAS COMPLAINTS OF ABD PAIN AND ACLIX, JASMIN MONTERO AWARE. DR CLARK IN TO SPEAK WITH PATIENT AND VERBALLY STATES TO REMOVED WAYNE CATHETER, BUT NO ORDER PLACED. JASMIN MONTERO AWARE. CALL LIGHT IN REACH, PATIENT NEAR NURSES STATION.
--- NOTE | 2019-03-11 19:31 | NUR ---
RECEIVED PT FROM PREVIOUS SHIFT. PT A/OX4. NONVERBAL, COMMMUNICATED VIA MARKER BOARD AT BEDSIDE AND GESTURES. DENIES PAIN. DENIES SOB ON RA. TRACH IN PLACE. G TUBE DRAINING TO GRAVITY WITH DARK GREENISH-BROWN OUTPUT. CALL LIGHT WITHIN REACH, BED IN LOW POSITION. WILL CONTINUE TO MONITOR.
[2019-03-11 20:20] VITALS: BP 106/56
--- NOTE | 2019-03-11 22:03 | NUR ---
F/C DISCONTINUED PER PATIENT'S REQUEST WITH NO COMPLICATIONS. PROVIDED PT WITH URINAL AT BEDSIDE.
--- NOTE | 2019-03-12 01:16 | NUR ---
PT RESTING IN NO ACUTE DISTRESS. RR EVEN AND UNLABORED. CALL LIGHT WITHIN REACH, BED IN LOW POSITION. WILL CONTINUE TO MONITOR.
[2019-03-12 05:13] VITALS: BP 93/51
[2019-03-12 06:48] LABS: BASOPHIL % 0.3 % (0-2); PLATELET COUNT 207 x10^3mcL (130-400)
[2019-03-12 06:57] LABS: ALKALINE PHOSPHATASE 77 U/L (46-116); ALT/SGPT 26 U/L (16-63); AST/SGOT 20 U/L (15-37); BILIRUBIN DIRECT 0.14 mg/dL (0.0-0.2); BILIRUBIN TOTAL 0.5 mg/dL (0.20-1.00); CARBON DIOXIDE 27.1 mmol/L (21-32); CHLORIDE SERUM 106 mmol/L (98-107); CREATININE SERUM 0.8 mg/dL (0.7-1.3); GFR1 > 60 mL/min; GLUCOSE SERUM 74 mg/dL (74-106); SODIUM SERUM 143 mmol/L (136-145)
[2019-03-12 07:12] LABS: RED CELL DISTRIBUTION WIDTH 17.8 % (11.5-14.5)
[2019-03-12 07:15] LABS: ALBUMIN 2.5 g/dL (3.4-5.0); POTASSIUM SERUM 2.4 mmol/L (3.5-5.1); TOTAL PROTEIN, SERUM 5.5 g/dL (6.4-8.2)
--- NOTE | 2019-03-12 07:42 | NUR ---
REPORT TAKEN FROM RESEARCH INSTRUCTOR NURSE, PT AWAKE AND ALERT AND ABLE TO COMMUNICATE AT TIME OF REPORT. LAB CALLED TO REPORT POTASSIUM OF 2.4. DR CEE PAGED.
[2019-03-12 08:23] VITALS: BP 115/61
[2019-03-12] MEDS ORDERED: PANTOPRAZOLE SO40 M1 PO (10:43)
--- NOTE | 2019-03-12 12:02 | NUR ---
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 Patient said that he is on Nutren 1.5 at home. Patient does bolus feedings at home by himself. Per nurse tech Jane, patient is to be discharged home with bolus feeds. Estimated Nutritional Needs based on ideal body weight 75.5 kg Energy: 5384-3894 kcal/d (30-35 kcal/kg) for CA, wt gain Protein: 60-76 g/d (0.8-1.0 g/kg)- CA vs renal failure Fluid: per MD Nutrition Diagnosis 1. Altered nutrient -related lab values related to renal failure, dehydration as evidenced by NA: 153, BUN: 45 (improved- NA:143, BUN: 14 on 03/12). 2. Inadequate oral intake related to tube feedings not started as evidenced by NPO. Intervention 1. Recommend TwoCal HN @ 150 ml Q4H. FWF 200 ml Q4H. This will provide 1800 kcal and 75g protein. This will meet 95% calorie and 100% protein needs. Monitor/Evaluate Goal: Have pt meet at least 75% of estimated needs Monitor: PO intake, Labs, GI function F/U in 2-3 days as high risk 03/14-
--- NOTE | 2019-03-12 13:04 | NUR ---
C/O ABD. PAIN AND MILD HEADACHE, 04/21. MEDICATED WITH MORPHINE IVP PER ORDER. NURSE BRANDON NOTIFIED.
[2019-03-12 13:24] VITALS: BP 105/55
[2019-03-12 16:22] VITALS: BP 93/53
--- NOTE | 2019-03-12 18:20 | NUR ---
I CALLED THE PT'S SISTER TO REPORT THAT THE PT IS READY TO BE DISCHARGED, I SPOKE TO THE PT'S MOTHER WHO SAID SHE WOULD PASS THE MESSAGE ALONG TO THE PT'S SISTER. I ADVISED SHE CALL THE HOSPITAL OR THE PT TO TELL US WHEN SHE WILL BE HERE.
--- NOTE | 2019-03-12 19:27 | NUR ---
PT DC'D HOME IN THE CARE OF HIS SISTER, IV'S DC'D FROM B/L FOREARMS BLEEDING CONTROLLED, SITES WRAPPED WITH GUAZE AND COBAN, PT SIGNED DC PAPERS. AMBULATORY AT DISCHARGE. WALKED TO EXIT BY MECHANICAL PROCESS ENGINEER VIA WHEELCHAIR.
[2019-03-12 21:40] VITALS: Ht 177.8 cm; Wt 60.0 kg
== END 2019-03-12 19:00 | disposition home health service (06) | DRG 241 ==
LOC: ED 17:32 → IC 19:29 → DU 19:29 → IC 03-09 02:59 → DU 03-09 03:05 → IC 03-09 03:06 → DU 03-10 18:05
PROVIDERS: Emergency Medicine; Internal Medicine; Internal Medicine Nephrology; Internal Medicine Pulmonary Disease; ADMIT Internal Medicine
PROC: 0DJ08ZZ Inspection of Upper Intestinal Tract, Via Natural or Artificial Opening Endoscopic (ICD-10-PCS; principal; 2019-03-08 12:30)
PROC: 30233N1 Transfusion of Nonautologous Red Blood Cells into Peripheral Vein, Percutaneous Approach (ICD-10-PCS; 2019-03-09)
DX: K25.4 Chronic or unspecified gastric ulcer with hemorrhage (principal); E87.2 Acidosis; E87.0 Hyperosmolality and hypernatremia; Z93.0 Tracheostomy status; I10 Essential (primary) hypertension; E86.0 Dehydration; D50.0 Iron deficiency anemia secondary to blood loss (chronic); E87.6 Hypokalemia; K20.8 Other esophagitis; Z93.1 Gastrostomy status; Z85.810 Personal history of malignant neoplasm of tongue
CPT/HCPCS: 36600; 43235; C9113; G0378; J1170; J1200; J1610; J2250; J2270; J2310; J2405; J2543; J3010; J3370; J3480; J3490; J7030; J7050; J7070; P9016; Q0092; Q9966

== ENCOUNTER 2019-03-14 22:42 | Inpatient (IN) | payer OTHER ==
[~2019-03-14] VITALS: Ht 175.3 cm; Wt 68.0 kg
[~2019-03-14 22:42] MED LIST changes: +PANTOPRAZOLE SO40 M1 PO
--- NOTE | 2019-03-14 22:49 | NUR ---
PT TO ANOTHER HOSPITAL WHEN HE HAD A NEAR SYNCOPAL EVENT. PT HAS EXTENSIVE CANCER HX WHERE THEY REMOVED PART OF HIS TONGUE. PT DOES NOT VERBALLY COMMUNICATE ONLY USUALY COMMUNICATED BY DRAWING. PT HAS TRACHEOSTOMY WELL G TUBE. PT IS COUGHING OUT COFFEE GROUND EMESIS OUT OF TRACHEOSTOMY. PT IS BREATHING EQUAL AND MILDLY LABORED/ TACHYPNIC. PT IS RESPONSIVE TO VERBAL STIMULI AND FOLLOWS COMMANDS EASILY. PT WHEN ASKED IF HE HAS PAIN PT IS ABLE TO POINT TO HIS STOMACH AREA WELL GRIMACES UPON PALPATION. PT HAS POSITIVE RECTAL BLEED WELL. PT WAS DISCHARGED YESTERDAY WITH THIS KNOWLEDGE. PER FAMILY HE IS AT HIS BASELINE MENTALLY, THEY JUST REPORTED THE WEAKNESS. PT IS PALE, AND COOL. SKIN IS MOIST AND INTACT.PT HAS VISIBLE BRUISING TO UPPER EXTREMETIES FROM WHERE IT LOOKS TO BE IF BLOOD DRAWS/ IVS HAVE BEEN PLACED PRIOR. PT CONNECTED TO FULL CM,PULSE OX AND BP MONITORS. RT APODACA AND MD MITCHELL AT BEDSIDE FOR SUCTION AND EVALUATION.
--- NOTE | 2019-03-14 23:23 | NUR ---
AWAITING BLOOD CULTURES TO BE DRAWN AT THIS TIME TO START IV ABX ORDERED
--- NOTE | 2019-03-14 23:28 | NUR ---
CALLED TO ER TO ASSIST WITH TRACH CARE AND SUCTIONING. PATIENT HAS A TRACH THAT HAS NO INNER CANNULA. SIZE 6 PORTEX THAT IS SECURE WITH TRACH TIES. NO PROTECTIVE PADDING OR GAUZE USED FOR TRACH. SPO2 ON ROOM AIR 96%.
--- NOTE | 2019-03-14 23:43 | NUR ---
LAB AT BEDSIDE FOR BLOOD DRAW
[2019-03-15 00:06] LABS: PLATELET COUNT 218 x10^3mcL (130-400)
[2019-03-15 00:08] LABS: microscopic required? NO
[2019-03-15 00:10] LABS: BASOPHIL % 0 % (0-2); RED CELL DISTRIBUTION WIDTH 18.7 % (11.5-14.5)
[2019-03-15 00:13] LABS: CALCIUM 6.7 mg/dL (8.5-10.1); CHLORIDE SERUM 110 mmol/L (98-107); CREATININE SERUM 0.8 mg/dL (0.7-1.3); GFR1 > 60 mL/min; GLUCOSE SERUM 131 mg/dL (74-106); POTASSIUM SERUM 4.6 mmol/L (3.5-5.1); SODIUM SERUM 145 mmol/L (136-145)
[2019-03-15 00:18] LABS: ALKALINE PHOSPHATASE 62 U/L (46-116); ALT/SGPT 16 U/L (16-63); AST/SGOT 10 U/L (15-37); BILIRUBIN TOTAL 0.2 mg/dL (0.20-1.00)
[2019-03-15 00:23] LABS: ALBUMIN 1.7 g/dL (3.4-5.0); TOTAL PROTEIN, SERUM 3.9 g/dL (6.4-8.2)
[2019-03-15 00:26] LABS: UA SPECIFIC GRAVITY 1.015 (1.005-1.035); urine erythrocyte NEGATIVE (NEGATIVE)
[2019-03-15 00:45] LABS: CK-MB 0.9 ng/mL (0-3.6)
--- NOTE | 2019-03-15 00:51 | NUR ---
MD MITCHELL MADE AWARE MD MITCHELL MADE AWARE OF PT LOW BP
--- NOTE | 2019-03-15 00:51 | NUR ---
CALLED BLOOD BANK. BLOOD BANK STATES 25 MINUTES FOR BLOOD
--- NOTE | 2019-03-15 01:05 | NUR ---
PT STILL ALERT AND RESPONSIVE TO VERBAL STIMULI AND ABLE TO FOLLOW ALL COMMANDS AT THIS TIME
--- NOTE | 2019-03-15 01:18 | NUR ---
BLOOD STARTED AT THIS TIME. WILL REMAIN WITH PT FOR FURTHER MONITORING
[2019-03-15 01:21] LABS: rbc morphology (normal/abnorm) ABNORMAL (NORMAL)
[2019-03-15 01:22] LABS: ovalocyte/elliptocyte 1+
--- NOTE | 2019-03-15 01:33 | NUR ---
BLOOD INCREASED TO 200ML/HR PER MD MITCHELL REQUEST AND LOW BP WITH GI BLEED
--- NOTE | 2019-03-15 01:37 | NUR ---
PER MD MITCHELL WAIT TO SEE IF BLOOD BOLUS HELPS PT BP AND IF NOT WE WILL PREP FOR A CENTRAL LINE AND PRESSORS PT STILL RESPONSIVE TO VERBAL STIMULI AND COOPERATIVE
--- NOTE | 2019-03-15 01:49 | NUR ---
PROTONIX HELD WHILE ADMINISTERING NOREPINEPHRINE FOR LINE INCOMPATIBILITY
--- NOTE | 2019-03-15 02:18 | NUR ---
PT IS ABLE TO USE URINAL ON HIS OWN AT THIS TIME WHEN ASKED PT IF HE FEELS BETTER PT GIVES ME A THUMBS UP AND NODS HIS HEAD
--- NOTE | 2019-03-15 02:40 | NUR ---
G TUBE FLUSHED WITH COLD WATER PER PT REQUEST. 160ML OF WATER IN
--- NOTE | 2019-03-15 02:42 | NUR ---
HOLDING FLAGYL PER NO LINE TO INFUSE IN. GOING TO PLACE CENTRAL LINE. FALGYL INCOMPATIBLE WITH LIFE SAVING DRUGS INFUSING AT THIS TIME
--- NOTE | 2019-03-15 03:16 | NUR ---
PT TRACH SUCTIONED WITH THICK BLACK/RED SECRETIONS. PT ABLE TO VERBALIZE NEEDS AND COUGH UP THICK SECRETIONS AT THIS TIME
--- NOTE | 2019-03-15 03:19 | NUR ---
MD MITCHELL AT BEDSIDE FOR CENTRAL LINE INSERTION
--- NOTE | 2019-03-15 03:46 | NUR ---
PT CURRENTLY WRITING NOTES ON A PIECE OF PAPER WITH A PEN
--- NOTE | 2019-03-15 03:53 | NUR ---
RECEIVED REPORT FROM KAYLEE IN ED. AWAITING PT TRANSFER TO ICU.
--- NOTE | 2019-03-15 03:54 | NUR ---
REPORT GIVEN TO NILO CASTELLANOS TO RESUME CARE OF PT X RAY AT BEDSIDE TO CONFIRM CENTRAL LINE PLACEMENT
--- NOTE | 2019-03-15 03:59 | NUR ---
MD MITCHELL STATES CENTRAL LINE IS CONFIRMED IN PLACEMENT AND IS OKAY TO USE PROTONIX AND LEVOPHED MOVED TO CENTRAL LINE
--- NOTE | 2019-03-15 04:15 | NUR ---
PT BROUGHT IN VIA GUERNEY FROM ED ACCOMPANIED BY NURSE AND EMT. PT ABLE TO TRANFER HIMSELF WITH SOME ASSISSTANCE TO ICU BED. HOOKED PT UP TO RETAIL LOAN ORIGINATOR AND CONTINUOUS PULSE OX. VS ON ADMISSION: T 97.1, HR 86, BP 107/74 (90), RR 16, O2SAT 100% ON RA. AAOX4. NONVERBAL BUT ABLE TO MAKE NEEDS KNOWN THROUGH WRITING AND GESTURES. ABLE TO FOLLOW COMMANDS. BREATHING E/U. LUNG SOUNDS CLEAR TO UPPER LOBES AND DIMINISHED TO BASES. S1S2 AUSCULTATED WITH NO MURMURS NOTED. PULSES PALPABLE. NO EDEMA NOTED. NS INFUSING AT 80CC/HR. LEVOPHED AT 2MCG/MIN. PROTONIX GTT AT 8ML/HR. RIJ CVC TRIPLE LUMEN INTACT AND PORTS PATENT, WNL. R BACK OF ARM 20G AND L HAND 20G, WNL. SKIN WARM, DRY. PT HAS SCATTERED ECCYMOSIS TO BUE. PT C/O 7/10 ABDOMINAL PAIN, MEDICATED PRN (SEE EMAR). NO N/V NOTED. NPO AT THIS TIME. URINAL AT BEDSIDE. BED IN LOW POSITION. CALL LIGHT WITHIN REACH. WILL CONTINUE TO MONITOR.
[2019-03-15 04:25] LABS: BASOPHIL % 0.1 % (0-2); PLATELET COUNT 209 x10^3mcL (130-400)
[2019-03-15 04:27] LABS: RED CELL DISTRIBUTION WIDTH 16.4 % (11.5-14.5)
[2019-03-15 04:47] LABS: rbc morphology (normal/abnorm) ABNORMAL (NORMAL)
[2019-03-15 04:49] LABS: rbc morphology (normal/abnorm) ABNORMAL (NORMAL)
[2019-03-15 04:50] VITALS: BP 107/74
--- NOTE | 2019-03-15 05:40 | NUR ---
2ND UNIT OF PRBC'S INITIATED. VERIFIED ORDER WITH JEANINE CASTELLANOS PRIOR TO ADMISSION. VS: T 98.1, P 82, B/P 108/63, RR 23, O2SAT 100%. STARTED INFUSION SLOW AT 30CC/HR AND WILL MONITOR FOR ANY ADVERSE REACTIONS.
--- NOTE | 2019-03-15 05:50 | NUR ---
BLOOD INFUSION INCREASED TO 120CC/HR. NO S/SX OF ADVERSE REACTIONS NOTED. VS: T98.3, 88, 106/66, 19, O2SAT 99%. WILL CONTINUE TO MONITOR.
--- NOTE | 2019-03-15 07:10 | NUR ---
GAVE REPORT TO JULIO CASTELLANOS. ALL QUESTIONS AND CONCERNS ADDRESSED.
[2019-03-15 08:00] VITALS: BP 109/67
--- NOTE | 2019-03-15 08:00 | NUR ---
PATIENT AWAKE AND ORIENTED TO PERSON, PLACE AND TIME. PATIENT NON-VERBAL DUE TO TRACH. PATIENT COMMUNICATES BY WRITING AND GESTURING. TRACH SIZE [address] AND SECURED. PATIENT IS ON ROOM AIR AT THIS TIME AND DENIES SHORTNESS OF BREATH. TELE # 4 READS SINUS RHYTHMS AT THIS TIME. CVC TO RIJ WITH DRESSING INTACT. THE 2ND UNIT OF PRBC IS INFUSING. IV NS AT 80ML/HR AND PROTONIX AT 8ML/HR. LEVOPHED AT 2MCG/MIN. IV SITES TO RFA AND LFA. PEG TUBE IN PLACE AND CLAMPED. DARK BLOODY OUTPUT NOTED IN THE TUBE. CALL LIGHT WITHIN REACH. SIDE RAILS UP X3.
--- NOTE | 2019-03-15 08:24 | NUR ---
PATIENT C/O ABDOMINAL PAIN 03/21. ADMINISTER MORPHINE 4 MG IVP FOR SEVERE PAIN.
--- NOTE | 2019-03-15 08:31 | NUR ---
BP 100/67 AND MAP 78; LEVOPHED TURNED OFF.
--- NOTE | 2019-03-15 08:50 | NUR ---
THE 2ND UNIT OF PRBC COMPLETED; VS : TEMP 98.1, HR 87, BP 102/63, RR 22 AND O2 100%. PATIENT DENIES ADVERSE REACTION. WILL TRANSFUSE THE 3RD UNIT OF PRBC TO THE PATIENT ORDERED.
--- NOTE | 2019-03-15 10:02 | NUR ---
DR. ALEXANDER IN TO SEE THE PATIENT. UPDATE PROVIDED TO THE DOCTOR.
--- NOTE | 2019-03-15 10:45 | NUR ---
PEG TUBE CONNECTED TO DRAINING BAG TO GRAVITY; DARK BLOODY OUTPUT NOTED IN THE PEG TUBE.
[2019-03-15 12:15] VITALS: BP 90/50
--- NOTE | 2019-03-15 12:15 | NUR ---
AT 0945: THE 3RD UNIT OF PRBC IS INITIATED WITH VS: TEMP 97.0, HR 85, BP 99/52, RR 23, AND O2 SAT 100%. AGAIN INSTRUCTED THE PATIENT TO NOTIFY THE NURSE FOR ANY ADVERSE REACTION. AT 1000, VS CHECKING AFTER 15 MINUTES INITIATING OF BLOOD TRANSFUSION: TEMP 97.0, HR 82, BP 92/69, RR 21, O2 SAT 100%. PATIENT DENIES ADVERSE REACTION. CONTINUE THE BLOOD TRANSFUSION. AT 1215: THE BLOOD TRANSFUSION COMPLETED. PATIENT DENIED ANY ADVERSE REACTION. VS CHECKED: TEMP 97.6, HR 77, BP 90/50, RR 20, AND O2 SAT 98%.
--- NOTE | 2019-03-15 15:15 | NUR ---
Initial Nutrition Assessment Dx: Colitis, GI Bleed, Sepsis PMHx: Tongue CA PSHx: Tongue removal, G-tube and trach placement Labs: (03/15) Na 145, K 4.6, BG 131H, BUN 25H, WBC 11.3H, H/H 5.7L/17L Meds: Flagyl, Levophed, Protonix, Reglan, NSIV, Zofran, Zosyn Nutrition Support: PEG in place, but no TF order in place Residuals: None documented I and O: (03/15) 3876/1475 +[id number]. Positive fluid balance noted; weight fluctuations are expected. Ht: 69" (175 cm) Wt: 138# (62.6 kg) BMI: 20.4 (WNL) IBW: 160# %IBW: 86% UBW: 140# Age: 63 y/o male Food Allergies: NKFA Skin: Intact Jalen: 15 Edema: None GI: Last BM x 1 (03/15) Per H&P, pt. admitted from home to ED with hypotension, abdominal pain, and blood at the tracheostomy site. Pt. recently admitted and discharged from facility the previous month for rectal bleeding. CT abdominal/pelvis region conducted on 03/15 with findings of distended stomach with PEG in place per provider progress notes. Pt. is aphasic, however, able to adequately communicate via writing. No TF running during bedside visit. Pt. previously receiving Nutren 1.5 bolus feeds at home with good tolerance. T: Tube feeding Problem with: No c/o N/V/D/C Problems with: Chewing: Y Swallowing: Y Current appetite: N/A Recent wt change: %wt change: Vitamin/Supplement use: None Special diet at home: Nutren 1.5 bolus tube feeding per pt. Physical activity: None d/t acute illness Education: Diet education not appropriate at this time. Estimated Nutritional Needs Based on body weight 62.6 kg Energy: 0559-4788 kcal/d (30-35 kcal/kg-weight maintenance and wound healing) Protein: 87-100 g/d (1.4-1.6 g/kg)-wound healing support Fluid: 0912-6099 ml/d (1 ml/kcal) or per doctor Nutrition Diagnosis 1. Increased nutrient needs r/t increased metabolic demands AEB pt. noted with recent tracheostomy procedure and surgical wounds from tongue removal. 2. Inadequate EN infusion r/t no TF order in place AEB pt. not meeting >75% estimated kcal and protein needs. Intervention/RD recommendations 1. When medically able, initiate 2 umair HN at 45 mL/Hr with 150 mL FWF Q4H. Provides 2160 kcal, 90 g protein, and 1656 mL total water. Regimen will meet >75% estimated needs. Monitor/Evaluate Goal: TF intake at least 75% estimated needs Monitor: TF intake/tolerance, Labs, GI function, weights F/U in 2-3 days as high risk (03/17-03/18)
--- NOTE | 2019-03-15 15:20 | NUR ---
Intervention/RD recommendations 1. When medically able, initiate 2 umair HN at 45 mL/Hr with 150 mL FWF Q4H. Provides 2160 kcal, 90 g protein, and 1656 mL total water. Regimen will meet >75% estimated needs.
[2019-03-15 16:11] VITALS: BP 123/75
--- NOTE | 2019-03-15 18:39 | NUR ---
PEG TUBE TO GRAVITY WITH 25ML OF COFFEE GROUND OUTPUT.
--- NOTE | 2019-03-15 19:16 | NUR ---
REPORT GIVEN TO CHANDANA CORCORAN RN. CONCERNS ADDRESSED.
--- NOTE | 2019-03-15 19:17 | NUR ---
RECEIVED REPORT FROM JULIO CASTELLANOS. WILL RESUME CARE.
[2019-03-15 19:25] VITALS: BP 101/62
--- NOTE | 2019-03-15 20:10 | NUR ---
2010: 4TH UNIT OF PRBC INTIATED. VS PRIOR TO ADMINISTRATION: T 98.2, HR 80, B/P 95/49 (67),RR 17, O2SAT 96%. STARTED INFUSION AT SLOW RATE OF 30CC/HR. WILL MONITOR FOR S/SX OF ADVERSE REACTION. 2024: NO S/SX OF ADVERSE REACTION NOTED. AFTER 15 MIN OF INFUSION VS: T 97.7, HR 79, B/P 110/71(84), RR 20, O2SAT 100%. INCREASED INFUSION TO 120CC/HR. WILL CONTINUE TO MONITOR. 2319: BLOOD TRANSFUSION COMPLETE. VS: T 98.0, HR 82, B/P 115/67 (83), RR 18, O2SAT 99%. STILL NO S/SX OF ADVERSE REACTION NOTED. PT TOLERATED WELL.
[2019-03-15 23:50] VITALS: BP 99/64
--- NOTE | 2019-03-16 02:27 | NUR ---
PT HAD LARGE FORMED DARK BROWN STOOL IN BEDPAN.
--- NOTE | 2019-03-16 02:46 | NUR ---
PT C/O 02/18 ABDOMINAL PAIN. GIVEN DILAUDID 1MG IVP. WILL REASSESS FOR RELIEF OF PAIN.
[2019-03-16 03:08] VITALS: BP 111/65
[2019-03-16 05:48] LABS: BASOPHIL % 0.2 % (0-2); PLATELET COUNT 188 x10^3mcL (130-400)
[2019-03-16 05:53] LABS: RED CELL DISTRIBUTION WIDTH 15.5 % (11.5-14.5)
[2019-03-16 06:07] LABS: ALKALINE PHOSPHATASE 47 U/L (46-116); ALT/SGPT 11 U/L (16-63); AST/SGOT 5 U/L (15-37); BILIRUBIN TOTAL 0.69 mg/dL (0.20-1.00); CALCIUM 8.1 mg/dL (8.5-10.1); CARBON DIOXIDE 25.3 mmol/L (21-32); CHLORIDE SERUM 114 mmol/L (98-107); CREATININE SERUM 0.7 mg/dL (0.7-1.3); GFR1 > 60 mL/min; GLUCOSE SERUM 87 mg/dL (74-106); POTASSIUM SERUM 3.3 mmol/L (3.5-5.1); SODIUM SERUM 147 mmol/L (136-145)
[2019-03-16 06:08] LABS: ALBUMIN 2.8 g/dL (3.4-5.0)
[2019-03-16 07:10] VITALS: BP 112/66
[2019-03-16 07:47] VITALS: Ht 175.3 cm; Wt 68.0 kg
--- NOTE | 2019-03-16 09:05 | NUR ---
PT STATING 10/10 PAIN TO ABD AND HEAD. DILAUDID 1MG GIVEN PER EMAR.
--- NOTE | 2019-03-16 10:44 | NUR ---
GI TEAM AT BEDSIDE PREPARING FOR EGD. PRE-OP CHECKLIST, PROCEDURE CONSENT, AND ANESTHESIA CONSENT SIGNED AND GIVEN TO REGIS CASTELLANOS.
[2019-03-16 11:06] VITALS: BP 107/59
--- NOTE | 2019-03-16 11:16 | NUR ---
DR. CRUZ ARRIVED TO UNIT AND IS PERFORMING EGD AT BEDSIDE AT THIS TIME.
--- NOTE | 2019-03-16 11:48 | NUR ---
EGD AT BEDSIDE COMPLETED. DR. CRUZ FOUND GASTRIC ULCER AND PLACED 4 CLIPS AT SITE. PT TOLERATED WELL AND RESTING AT THIS TIME.
--- NOTE | 2019-03-16 12:07 | NUR ---
PT STATING 10/10 PAIN TO ABD AND THROAT. MEDICATED PER EMAR.
--- NOTE | 2019-03-16 14:18 | NUR ---
DR. ALEXANDER AT BEDSIDE ASSESSING PT. ALL QUESTIONS ANSWERED AND ADDRESSED. UPDATES PROVIDED. DR. ALEXANDER STATED THAT PT IS CLEARED TO GO UPSTAIRS.
--- NOTE | 2019-03-16 16:00 | NUR ---
2ND K-RIDER FOR A TOTAL OF 40 MEQ INITIATED AT THIS TIME.
--- NOTE | 2019-03-16 19:00 | NUR ---
RECEIVED REPORT FROM VIDYA CASTELLANOS. ASSUMING ALL CARE
[2019-03-16 19:20] VITALS: BP 143/83
--- NOTE | 2019-03-16 19:20 | NUR ---
RECEIVED PT LAYING IN BED. PT IS A/OX4. PERRLA NOTED BILAT. ABLE TO MAKE NEEDS KNOWN BY GESTURING AND WRITING, AND ABLE TO FOLLOW COMMANDS. RIJ CVC INTACT/PATENT WITH DRESSING CDI. TRACHEA MIDLINE. ORAL MUCOSA PINK AND MOIST. NO JVD NOTED. SHILEY 6.0 TRACH INTACT. PT IS TRACH'D SHILEY 6.0. BREATHING IS E/U ON RA. LUNGS SOUND CLEAR TO BUL AND DIMIN TO BLL. SYMMETRICAL CHEST EXPANSION NOTED. PT NOTED WITH A PRODUCTIVE COUGH. S1/S2 HEART SOUNDS AUSCULTATED. CHEST WALL EQUAL AND SYMMETRICAL. DENIES CP. HR 74, BP 143/83, MAP 103. PALPABLE PULSES X4 EXTREMITIES. SKIN IS WARM AND DRY. NO EDEMA NOTED. RIGHT ARM AND LFA IV IN PLACE WITH DRESSING CDI. D5 INFUSING @ 75 ML/HR AND PROTONIX GTT @ 8 ML/HR. CAP REFILL < 3 SECS. GENERALIZED WEAKNESS. NO JOINT SWELLING/DEFORMITY NOTED. ACTIVE FULL ROM X4 EXTREMITIES. PT IS NPO AT THIS TIME. DENIES ANY N/V. ABD IS SOFT, FLAT, NONTENDER TO PALPATION. BOWEL SOUNDS ACTIVE X4 QUADRANTS. NO BM NOTED. PEG IS INTACT/SECURED TO LUQ DRAINING VIA GRAVITY WITH BROWNISH COLORED DRAINAGE. PT VOIDS FREELY VIA URINAL. NO SCROTAL EDEMA NOTED. SCATTERED ECCHYMOSIS NOTED THROUGHOUT BODY. PT ABLE TO REPOSITION SELF INDEPENDENTLY. BED IN LOW POSITION. CALL LIGHT IN REACH. WILL CONT TO MONITOR
--- NOTE | 2019-03-16 19:56 | NUR ---
PATIENT'S SISTER IS AT BEDSIDE AT THIS TIME. SHE IS VERBALLY UPSET WITH THE CARE THAT HER BROTHER HAS RECEIEVED WITH HIS STAY AND UPSET THAT HE HASN'T BEEN FED YET. EDUCATION PROVIDED ABOUT THE PATIENT STAYING NPO AT THIS TIME PER DR. CRUZ'S NOTES AFTER EGD THAT WAS DONE TODAY. NOTIFIED DR. CALDERA THE MEDIA PLANNER DOCTOR. PER DR. CALDERA TO FOLLOW UP WITH PRIMARY DOCTOR TOMORROW.
--- NOTE | 2019-03-16 20:02 | NUR ---
PATIENT'S MOTHER AND OTHER SISTER AT BEDSIDE AT THIS TIME. QUESTIONS AND CONCERNS ADDRESSED. SISTER AND MOTHER ARE AWARE THAT THE PATIENT IS TO STAY NPO AT THIS TIME.
--- NOTE | 2019-03-16 20:10 | NUR ---
PT C/O ABD PAIN RATED 8/10. PT MEDICATED WITH DILAUDID PER EMAR. WILL CONT TO MONITOR.
--- NOTE | 2019-03-16 20:29 | NUR ---
REPORT GIVEN TO FLORINA CASTELLANOS VIA TELEPHONE FOR CONTINUITY OF CARE
--- NOTE | 2019-03-16 21:00 | NUR ---
PT TRANSFERRED AT THIS TIME VIA WHEELCHAIR ACCOMPANIED BY SOL RN. PT IS A/OX4. ABLE TO MAKE NEEDS KNOWN. BREATHING IS E/U ON RA. RIJ CVC INTACT/SECURED, RIGHT ARM AND LFA IV IN PLACE WITH NO S/S OF INFILTRATION. LUQ PEG IN PLACE, DRAINING VIA GRAVITY. NO S/S OF ACUTE DISTRESS NOTED. VITALS UPON DISCHARGE, BP 126/81 MAP 91, HR 75, RR 18, SPO2 99%. FLORINA CASTELLANOS TO ASSUME CARE
--- NOTE | 2019-03-16 21:10 | NUR ---
RECEIVED PT FROM ICU VIA WHEELCHAIR ACCOMPANIED BY RN AND FAMILY. PT ABLE TO AMBULATE TO BED. NO ACUTE DISTRESS NOTED. EVEN AND UNLABORED RESPIRATIONS ON RA. TELE MONITOR #23 READING SR 73 WITH OCC PAC'S. IV PATENT AND INTACT RUNNING FLUIDS AND MEDICATIONS PER EMAR. CENTRAL LINE TO RIJ PATENT AND INTACT. C/O ABD PAIN AT THIS TIME. WILL MEDICATE PER EMAR. PEG TUBE PATENT AND INTACT DRAINING VIA GRAVITY WITH BROWN OUTPUT NOTED. ORIENTED PT TO ROOM AND SURROUNDINGS. INSTRUCTED ON USE OF CALL LIGHT. VS: 98.6, 74, 16, 111/70(87), 96% ON RA. BED IN LOWEST POSITION. SIDE RAILS UPX2. CALL LIGHT WITHIN REACH. WILL CONTINUE TO MONITOR.
[2019-03-16 21:15] VITALS: BP 111/70
--- NOTE | 2019-03-17 01:22 | NUR ---
PT RESTING COMFORTABLY BED. NO ACUTE DISTRESS NOTED. EVEN AND UNLABORED RESPIRATIONS ON RA. IVL PATENT AND INTACT. IV FLUIDS AND MEDICATIONS RUNNING THROUGH RIJ CENTRAL LINE. ON TELE# 23 READING SR 75. PT C/O ABD PAIN, WILL MEDICATE PER EMAR. PEG PATENT AND INTACT, DRAINING VIA GRAVITY. BED IN LOWEST POSITION. SIDE RAILS UPX2. CALL LIGHT WITHIN REACH. WILL CONTINUE TO MONITOR.
[2019-03-17 05:13] VITALS: BP 135/81
[2019-03-17 06:34] LABS: BASOPHIL % 0.5 % (0-2); PLATELET COUNT 224 x10^3mcL (130-400)
--- NOTE | 2019-03-17 06:34 | NUR ---
PT SLEPT IN INTERVALS THROUGHOUT THE SHIFT. NO ACUTE CHANGES NOTED. EVEN AND UNLABORED RESPIRATIONS ON RA. ON TELE #23 READING SR 68. IVS SALINE LOCKED, PATENT AND INTACT. RIJ CENTRAL LINE PATENT AND INTACT RUNNING FLUIDS AND MEDS PER EMAR. ALL NEEDS TENDED TO AND MET. ALL SCHEDULED MEDICATIONS GIVEN. C/O ABD PAIN MEDICATED PER EMAR. PEG PATENT AND INTACT DRAINING VIA GRAVITY. BED IN LOWEST POSITION. SIDE RAILS UPX2. CALL LIGHT WITHIN REACH. WILL ENDORSE TO ONCOMING SHIFT.
[2019-03-17 06:52] LABS: ALBUMIN 2.7 g/dL (3.4-5.0); ALKALINE PHOSPHATASE 53 U/L (46-116); ALT/SGPT 11 U/L (16-63); AST/SGOT 5 U/L (15-37); BILIRUBIN TOTAL 0.55 mg/dL (0.20-1.00); CALCIUM 8.2 mg/dL (8.5-10.1); CARBON DIOXIDE 26.9 mmol/L (21-32); CHLORIDE SERUM 108 mmol/L (98-107); CREATININE SERUM 0.7 mg/dL (0.7-1.3); GFR1 > 60 mL/min; GLUCOSE SERUM 92 mg/dL (74-106); POTASSIUM SERUM 3.1 mmol/L (3.5-5.1); SODIUM SERUM 144 mmol/L (136-145); TOTAL PROTEIN, SERUM 5.5 g/dL (6.4-8.2)
[2019-03-17 06:55] LABS: RED CELL DISTRIBUTION WIDTH 15.4 % (11.5-14.5)
--- NOTE | 2019-03-17 07:08 | NUR ---
RECEIVED PT FROM [facility] SHIFT NURSE. PT RESTING IN BED, AOX4, RESP E/U ON RA. C/O OF ABD PAIN RATED 8/10, DENIES N/V. WILL CARRY OUT MED ORDERS, COMFORT MEASURES IMPLEMENTED. ON TELE 23 SHOWING NSR, HR: 68. PEG TUBE IN PLACE DRAINING YELLOW URINE TO GRAVITY. IV TO RFA AND L HAND AND CENTRAL LINE TO RIJ W/ NO ERYTHEMA OR EDEMA, IVF INFUSING WELL. BED IN LOWEST POSITION AND CALL LIGHT WITHIN REACH. WILL CONTINUE TO MONITOR.
[2019-03-17 08:41] VITALS: BP 133/68
--- NOTE | 2019-03-17 09:01 | NUR ---
DR. ALEXANDER CALLED BACK, ORDER RECEIVED. PER DR. ALEXANDER, HE WILL INFORM SALES DEVELOPMENT COORDINATOR DR. VALDES FOR CONSULTATION.
--- NOTE | 2019-03-17 11:40 | NUR ---
PT C/O OF ABD PAIN RATED 8/10. MEDICATED ORDERED PER EMAR, COMFORT MEASURES IMPLEMENTED. BED IN LOWEST POSITION AND CALL LIGHT WITHIN REACH. WILL CONTINUE TO MONITOR.
[2019-03-17 12:01] VITALS: BP 119/72
[2019-03-17 17:06] VITALS: BP 108/64
--- NOTE | 2019-03-17 18:00 | NUR ---
PT C/O OF ABD PAIN RATED 9/10/ MEDICATED ORDERED PER EMAR. PT AOX4, RESP E/U ON RA. IV TO RIJ, RAC AND L HAND PATENT AND INTACT, IVF INFUSING WELL. SUPRAPUBIC CATH IN PLACE DRAINING BROWN FLUID TO GRAVITY. BED IN LOW AND CALL LIGHT WITHIN REACH. WILL ENDORSE TO ONCMONING NURSE.
[2019-03-17 18:36] VITALS: BP 124/89
--- NOTE | 2019-03-17 20:23 | NUR ---
PT CURRENTLY RESTING IN BED, C/O ABD PAIN 03/21, WILL MEDICATED PER EMAR. A/O X4. TELE #23 SHOWING SINUS RHYTHM, DENIES CHEST PAIN. PULSES PALPABLE IN ALL EXTREMITIES, NO EDEMA NOTED. LUNG SOUNDS CTA BILATERALLY, DENIES SOB. SHILEY 6.[address] TO ROOM AIR. BOWEL SOUNDS ACTIVE, LAST BM 03/16/19, PT REPORTS PREVIOUS DARK LOOSE STOOLS. PEG TO LEFT ABD, DRAINING TO GRAVITY, DARK YELLOW DRAINAGE NOTED. VOIDING WELL. GENERALIZED WEAKNESS. BUE ECCHYMOSIS, ELSI. CENTRAL LINE TO RIJ PATENT AND INTACT. BED IN LOWEST POSITION, SIDE RAILS UP X2, CALL LIGHT WITHIN REACH. WILL CONTINUE TO MONITOR.
[2019-03-17 20:59] VITALS: BP 145/85
--- NOTE | 2019-03-18 00:37 | NUR ---
PT CURRENTLY RESTING IN BED, C/O ABD PAIN 03/21, MEDICATED PER EMAR. WILL CONTINUE TO MONITOR.
[2019-03-18 05:59] VITALS: BP 135/77
[2019-03-18 06:20] LABS: BASOPHIL % 0.3 % (0-2); PLATELET COUNT 246 x10^3mcL (130-400)
--- NOTE | 2019-03-18 06:21 | NUR ---
PT SLEPT PERIODICALLY THROUGHOUT NIGHT, NO ACUTE DISTRESS. ALL NEEDS MET AND ATTENDED TO. NO SIGNIFICANT CHANGES. IV PATENT AND INTACT. MEDICATED PAIN PER EMAR. BED IN LOWEST POSITION, SIDE RAILS UP X2, CALL LIGHT WITHIN REACH. WILL ENDORSE CARE TO ONCOMING NURSE.
[2019-03-18 06:26] LABS: CALCIUM 8.7 mg/dL (8.5-10.1); CARBON DIOXIDE 26.9 mmol/L (21-32); CHLORIDE SERUM 105 mmol/L (98-107); CREATININE SERUM 0.8 mg/dL (0.7-1.3); GFR1 > 60 mL/min; GLUCOSE SERUM 88 mg/dL (74-106); POTASSIUM SERUM 3.5 mmol/L (3.5-5.1); SODIUM SERUM 142 mmol/L (136-145)
[2019-03-18 07:01] LABS: RED CELL DISTRIBUTION WIDTH 15.6 % (11.5-14.5)
--- NOTE | 2019-03-18 07:20 | NUR ---
REPORT TAKEN FROM LIVESTOCK TRADER NURSE AT THE BEDSIDE, PT RESTING BUT WOKE FRO REPORT, DENIED PAIN, IN NAD AT THIS TIME. WILL CONTINUE TO MONITOR.
[2019-03-18 08:54] VITALS: BP 110/62
[2019-03-18 09:49] VITALS: BP 113/65
[2019-03-18 12:24] VITALS: BP 127/78
--- NOTE | 2019-03-18 14:53 | NUR ---
Follow-up Nutrition Assessment: 248T/B ROSIOFRANCISCO FU HR Dx: Colitis, GI Bleed, sepsis PMHx: HTN, tongue removed (03/03) tongue CA, TF/trach Labs: (03/18): HGB 9.5L, MG 1.7L, BUN 5.0L Meds: D 5%,flagyl, reglan, Zofran, zosyn Diet: NPO PO Intake: NPO Weights: (03/10) 60 kg, (03/15) 62.5 kg, (03/16) 68 kg, (03/18) Skin: scattered ecchymosis to BUE Jalen: 17 I/Os: (03/18) 2068/1650 (418) Edema: none GI: PEG to gravity, dark yellow drainage Last BM: 03/16 RDN Visit (03/18): Patient was alert and oriented and communicated with me through a white board. Patient said that he does not have N/V at this time. Per RN Elfego, Dr. Mar wants the patient to be NPO for 72 hours for internal GI healing. FNS received page from Clayton Samuels requesting nutrition consult for G-tube feeding. Called JASMIN Telles that the recommendations are already in RD note. He said that he will communicate that to the next shift RN when TF will be initiated. Estimated Nutritional Needs based on body weight 62.6 kg Energy: 0721-7048 kcal/d (30-35 kcal/kg) for CA, wt gain, wound healing Protein: 87-100 g/d (1.4-1.6 g/kg)- wound healing support Fluid: per MD Nutrition Diagnosis 1. Increased nutrient needs related to increased metabolic demands as evidenced by pt. noted with recent tracheostomy, surgical wounds. 2. Inadequate EN infusion related to no TF order in place as evidenced by pt. not meeting >75% of estimated calorie and protein needs. Intervention 1. When medically appropriate, recommend TwoCal HN @ 45 ml/hr. FWF 150 ml Q4H. This will provide 2160 kcal and 90g protein. This will meet >75% estimated needs. Monitor/Evaluate Goal: Have pt meet at least 75% of estimated needs Monitor: TF intake, Labs, GI function F/U in 2-3 days as high risk 03/20-
[2019-03-18 16:30] VITALS: BP 133/79
--- NOTE | 2019-03-18 18:55 | NUR ---
PT TOLERATED TREATMENT WELL, WILL REPORT TO EQUIPMENT WASHER NURSE AND ENDORSE CARE
--- NOTE | 2019-03-18 20:30 | NUR ---
PT RECIEVED FROM DAY NURSE. PT SITTING UP IN BED COMFORTABLY. NO S/S OF PAIN AT THIS TIME. A/O X4, CALM AND COOPERATIVE AT THIS TIME. TELE 23, SR. DENIES CP, N/V, DIZZINESS, AND PALPATIONS. BREATHING EVEN AND UNLABORED ON RA. TRACH INTACT, PROVIDES OWN TRACH CARE. ABD SOFT AND ROUND, PEG TUBE DRAINING MARTIN LIQUID TO GRAVITY. BUE ECCHYMOSIS NOTED. RIJ CL, INTACT AND INFUSING. BED AT LOWEST POSITON. CALL LIGHT WITHIN REACH. WILL CONTINUE TO MONITOR.
--- NOTE | 2019-03-18 21:00 | NUR ---
PT COMPLAINING OF 6/10 ABD AND HEAD PAIN. MEDICATED WITH PRN DILAUDID. WILL CONTINUE TO MONITOR.
[2019-03-18 21:07] VITALS: BP 139/82
--- NOTE | 2019-03-19 00:10 | NUR ---
PT COMPLAINING OF 6/10 ABD PAIN. MEDICATED WITH PRN DILAUDED. WILL CONTINUE TO MONITOR.
--- NOTE | 2019-03-19 03:00 | NUR ---
PT COMPLAINING OF 6/10 ABD PAIN. MEDICATED WITH PRN DILAUDID. WILL CONTINUE TO MONITOR.
[2019-03-19 06:32] VITALS: BP 119/71
--- NOTE | 2019-03-19 06:40 | NUR ---
PT RESTING IN BED COMFORTABLY. STATED 01/19 PAIN IN ABD. MEDICATED WITH PRN DILAUDID. BREATHING E/U ON RA. WILL ENDORSE TO DAY NURSE.
[2019-03-19 06:58] LABS: CALCIUM 8.8 mg/dL (8.5-10.1); CARBON DIOXIDE 26.7 mmol/L (21-32); CHLORIDE SERUM 104 mmol/L (98-107); CREATININE SERUM 0.7 mg/dL (0.7-1.3); GFR1 > 60 mL/min; GLUCOSE SERUM 95 mg/dL (74-106); SODIUM SERUM 143 mmol/L (136-145)
[2019-03-19 08:12] VITALS: BP 114/62
--- NOTE | 2019-03-19 09:20 | NUR ---
DR ALEXANDER MADE AWARE OF TUBE FEEDING RECOMMENDATION FOR PATIENT TO BEGIN TODAY. TELEPHONE READ BACK ORDER RECEIVED TO ORDER RECOMMENDED TUBE FEEDING AND DC PROTONIX DRIP. PEG TUBE DC'D FROM GRAVITY BAG, ASPIRATED TUBE W/ NO RESIDUAL. AIR PUSHED AND AUSCULTATED IN ABD. TWOCAL HN INITIATED AT 45ML/HR PER ORDER W/ FWF 150ML Q4H. INFORMED PATIENT TO USE CALL LIGHT IF FEELING N/V OR ABD DISCOMFORT, VERBALIZED UNDERSTANDING. WILL CONT TO MONITOR AND EVALUATE TOLERATION. CALL LIGHT WITHIN REACH.
[2019-03-19 12:07] VITALS: BP 92/56
[2019-03-19 15:04] VITALS: BP 92/56
[2019-03-19 17:30] VITALS: BP 157/91
--- NOTE | 2019-03-19 17:45 | NUR ---
PATIENT TOLERATING TUBE FEEDING WELL, DENIES N/V, DENIES ABD DISCOMFORT, ABD SOFT AND NONTENDER. RESDICUAL CHECKED 50ML, REPLACED. DISCHARGE ORDER IN PLACE, WAITING FOR KRIDER TO COMPLETE INFUSING. PERIPHERAL IV TO LEFT ARM DC'D CATH INTACT. DISCHARGE INSTRUCTIONS GIVEN, PATIENT VERBALIZED UNDERSTANDING. WILL CONT TO MONITOR AND ENDORSE TO NOC NURSE.
[2019-03-19 18:03] VITALS: BP 92/56
--- NOTE | 2019-03-19 19:17 | NUR ---
Yevgeniy RIDER INFUSING COMPLETE. IV TO RIJ DC'D, CATH INTACT. PRESSURE APPLIED AND PRESSURE DRESSING APPLIED. DRESSING APPLIED TO PEG TUBE SITE WNL. ALL QUESTIONS/CONCERNS ADDRESSED. MOTHER AT BEDSIDE. ENDORSED TO [facility] NURSE.
== END 2019-03-19 19:28 | disposition home or self-care (01) | DRG 241 ==
LOC: ED 22:42 → DU 03-15 02:05 → IC 03-15 02:05 → DU 03-16 21:17
PROVIDERS: Emergency Medicine; ADMIT Internal Medicine Pulmonary Disease
PROC: 0DB78ZZ Excision of Stomach, Pylorus, Via Natural or Artificial Opening Endoscopic (ICD-10-PCS; principal; 2019-03-15)
PROC: 30233N1 Transfusion of Nonautologous Red Blood Cells into Peripheral Vein, Percutaneous Approach (ICD-10-PCS; 2019-03-15)
DX: K25.4 Chronic or unspecified gastric ulcer with hemorrhage (principal); R57.8 Other shock; E43 Unspecified severe protein-calorie malnutrition; Z93.0 Tracheostomy status; R13.10 Dysphagia, unspecified; E87.0 Hyperosmolality and hypernatremia; E86.0 Dehydration; D62 Acute posthemorrhagic anemia; E87.6 Hypokalemia; R91.1 Solitary pulmonary nodule; Z93.1 Gastrostomy status; Z87.891 Personal history of nicotine dependence; Z85.810 Personal history of malignant neoplasm of tongue; Z68.22 Body mass index [BMI] 22.0-22.9, adult
CPT/HCPCS: 36600; 43235; 83880; 97116-GP; C9113; G0378; J0171; J1170; J1200; J1610; J2250; J2270; J2310; J2543; J3010; J3480; J3490; J7030; J7050; J7070; P9016; P9047; Q0092

== ENCOUNTER 2019-03-25 13:56 | Emergency (ER) | payer OTHER ==
[~2019-03-25] VITALS: Ht 175.3 cm; Wt 59.0 kg
[2019-03-25 14:13] VITALS: Ht 175.3 cm; Wt 59.0 kg
[2019-03-25 15:01] LABS: BASOPHIL % 0.2 % (0-2)
[2019-03-25 15:04] LABS: PLATELET COUNT 417 x10^3mcL (130-400); RED CELL DISTRIBUTION WIDTH 15.3 % (11.5-14.5)
[2019-03-25 15:11] LABS: CALCIUM 9.7 mg/dL (8.5-10.1); CARBON DIOXIDE 32.2 mmol/L (21-32); CHLORIDE SERUM 101 mmol/L (98-107); CREATININE SERUM 0.8 mg/dL (0.7-1.3); GFR1 > 60 mL/min; GLUCOSE SERUM 122 mg/dL (74-106); POTASSIUM SERUM 3.5 mmol/L (3.5-5.1); SODIUM SERUM 143 mmol/L (136-145)
[2019-03-25 15:16] LABS: ALKALINE PHOSPHATASE 85 U/L (46-116); ALT/SGPT 16 U/L (16-63); AMYLASE 45 U/L (25-115); AST/SGOT 11 U/L (15-37); BILIRUBIN TOTAL 0.4 mg/dL (0.20-1.00); LIPASE 107 IU/L (73-393); TOTAL PROTEIN, SERUM 7.4 g/dL (6.4-8.2)
[2019-03-25 15:18] LABS: ALBUMIN 3.3 g/dL (3.4-5.0)
[2019-03-25 16:18] VITALS: BP 149/85
== END 2019-03-25 16:18 | disposition home or self-care (01) ==
LOC: ED 13:56
PROVIDERS: Emergency Medicine
DX: K25.9 Gastric ulcer, unspecified as acute or chronic, without hemorrhage or perforation (principal); I10 Essential (primary) hypertension; Z98.890 Other specified postprocedural states
CPT/HCPCS: 36415; J3010

== ENCOUNTER 2019-07-21 05:15 | Emergency (ER) | payer OTHER ==
[~2019-07-21] VITALS: Ht 177.8 cm; Wt 62.3 kg
[2019-07-21 05:16] VITALS: Ht 177.8 cm; Wt 62.3 kg
[2019-07-21 07:12] LABS: BASOPHIL % 0.2 % (0-2); PLATELET COUNT 218 x10^3mcL (130-400)
[2019-07-21 07:13] LABS: RED CELL DISTRIBUTION WIDTH 18.7 % (11.5-14.5)
[2019-07-21 07:19] LABS: CALCIUM 9.5 mg/dL (8.5-10.1); CARBON DIOXIDE 29.9 mmol/L (21-32); CHLORIDE SERUM 103 mmol/L (98-107); CREATININE SERUM 0.6 mg/dL (0.7-1.3); GFR1 > 60 mL/min; GLUCOSE SERUM 106 mg/dL (74-106); POTASSIUM SERUM 3.5 mmol/L (3.5-5.1); SODIUM SERUM 143 mmol/L (136-145)
[2019-07-21 07:31] LABS: ALBUMIN 3.5 g/dL (3.4-5.0); ALKALINE PHOSPHATASE 123 U/L (46-116); ALT/SGPT 15 U/L (16-63); AST/SGOT 17 U/L (15-37); BILIRUBIN TOTAL 0.3 mg/dL (0.20-1.00); CHOLESTEROL 148 mg/dL (<200); HDL CHOLESTEROL 37 mg/dL (40-60); LIPASE 86 IU/L (73-393); T4(THYROXINE) 6.7 ug/dL (4.7-13.3)
[2019-07-21 07:44] LABS: microscopic required? NO
[2019-07-21 07:57] LABS: urine erythrocyte NEGATIVE (NEGATIVE)
[2019-07-21 08:10] LABS: AMPHETAMINE QUAL UR NONE DETECTED (See below)
[2019-07-21 10:18] VITALS: BP 141/79
== END 2019-07-21 10:18 | disposition home or self-care (01) ==
LOC: ED 05:15
PROVIDERS: Emergency Medicine
DX: R06.02 Shortness of breath (principal); I10 Essential (primary) hypertension; F12.20 Cannabis dependence, uncomplicated; Z98.890 Other specified postprocedural states
CPT/HCPCS: 36600; 82962; 83880; J1885; J1956; J7030; Q0092